=== PATIENT | male | born 1955 | race Caucasian/White ===

== ENCOUNTER 2018-12-05 09:00 | Inpatient (IN) | payer BC ==
--- NOTE | 2018-11-23 10:46 | HP ---
Amended report to enter cosigning physician. HISTORY AND PHYSICAL: DATE OF ADMISSION/SURGERY: 12/05/18 DATE OF OFFICE VISIT: 11/22/18 SURGEON: Nathaly Valle MD* (dictated by AMISH Booker). PROCEDURE: Right total knee arthroplasty. CHIEF COMPLAINT: Right knee pain. HISTORY OF PRESENT ILLNESS: Mr. Santa is a 63-year-old gentleman with end- stage osteoarthritis of the right knee. He has failed conservative treatment and elected to proceed with the right total knee arthroplasty. PAST MEDICAL HISTORY: Hypertension, high cholesterol, history of prostate cancer, coronary artery disease, prior AL, depression, anxiety, spinal stenosis and sleep apnea. PAST SURGICAL HISTORY: Prostatectomy, stent placement, lumbar fusion, left shoulder rotator cuff repair, right knee scope, umbilical hernia repair and septoplasty. CURRENT MEDICATIONS: 1. Aspirin 81 mg today. 2. Multivitamin. 3. Ibuprofen as needed. 4. Tylenol as needed. 5. Crestor 10 mg a day. 6. Zetia 10 mg today. 7. Cymbalta. 8. Simvastatin 10 mg every other day. 9. Tramadol as needed. ALLERGIES: ALEVE. FAMILY HISTORY: Diabetes and coronary artery disease. SOCIAL HISTORY: He is a 63-year-old gentleman who lives with his . He does not smoke, use drugs or alcohol. REVIEW OF SYSTEMS: A complete 14-point review of systems was reviewed with the patient, it was all negative or noncontributory. He denies any history of DVT , PE, hepatitis, HIV or anesthesia problems. PHYSICAL EXAMINATION GENERAL: He is well developed, well nourished, in no acute distress. VITAL SIGNS: He stands 5 feet 9 inches tall, weighs 225 pounds, blood pressure is 104/64, his heart rate is 64. HEENT: Normocephalic, atraumatic. NECK: Supple. No palpable lymph nodes. PULMONARY: Lungs are clear to auscultation bilaterally. CARDIO: Regular rate and rhythm. Strong S1 and S2. ABDOMEN: Soft, nontender, nondistended. NEUROLOGICAL: He is alert and oriented x3. MUSCULOSKELETAL: Right lower extremity: Skin is intact. There are no open wounds or abrasions. There is a moderate effusion of the right knee joint, some tenderness over the medial and lateral joint line. Range of motion is 5 to 90 degrees of flexion with severe pain and patellofemoral crepitus. He has 5 /5 lower extremity strength. He does have diminished sensation over the dorsal right foot and great toe and he has a 2+ dorsalis pedis pulse. ASSESSMENT AND PLAN: Mr. Santa is a 63-year-old gentleman with endstage osteoarthritis of the right knee. He has failed conservative treatment and elected to proceed with the right total knee arthroplasty. The surgery is scheduled for 12/05/[address] Valle discussed the risks and benefits of the surgery at today's visit and all of his questions were answered. He will follow up with Dr. Valle in 2 weeks after the surgery. AMISH BOOKER [id number]/CPS #: [id number] MTDD
[~2018-12-05 09:00] MED LIST: Acetaminophen IV 1GM/100ML * 1,000 MG/100 ML VIAL IVPB ONE; Dexamethasone IV* 4 MG/ML 1 ML (4 MG) IV SLOW PU ONE; Famotidine IV* 10 MG/ML 2 ML (20 mg) IV ONE; Gabapentin CAP(*) 300 MG PO ONE; Lactated Ringers 1000 ML Bag* 1,000 ML IV SCH; Tranexamic Acid 1,000 MG in NS 0.9% 50 ML* (outpatient use) IV SCH; celeCOXIB CAP* 200 MG PO ONE
--- OUTSIDE RECORDS SUMMARY | 2018-12-05 10:04 | XMS REPORT | Continuity of Care Document ---
:1955 External Reference #:[id number] Author Name Marizol Vicente Care Team Providers Name Role Phone Brock Jacobs MD Primary Care Physician Unavailable Payers Date Identification Numbers Payment Provider Subscriber Policy Number: [id number] [employer] [place] PayID: [id number] [address] [address] [place] [address] Advance Directives Description No Information Available Problems Active Problems Provider Date Coronary arteriosclerosis Zari Jolley M.D. Onset: 04/16/2013 Disturbance in sleep behavior Zari Jolley M.D. Onset: 04/16/2013 Cramp in lower leg associated with Zari Jolley M.D. Onset: 04/16/2013 rest Hyperlipidemia Zari Jolley M.D. Onset: 04/16/2013 Obstructive sleep apnea syndrome Zari Jolley M.D. Onset: 08/13/2014 Hypersomnia with sleep apnea Johanna Antonio DNP, RN, Onset: 04/01/2015 [facility] Spinal stenosis of lumbar region Simon Mclean M.D. Onset: 03/29/2016 Localized, primary osteoarthritis Nathaly Valle M.D. Onset: 10/16/2018 Mixed hyperlipidemia Zari Jolley M.D. 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 [employer] Tobacco Use Start: Unknown Never Smoked Cigarettes Smoking Status Reviewed: 11/13/18 Never Smoked Cigarettes ETOH Use Denies alcohol use Tobacco Use Start: Unknown Patient has never smoked Recreational Drug Use Denies Drug Use Exercise Type/Frequency Exercises sporadically Allergies, Adverse Reactions, Alerts Active Allergies Reaction Severity Comments Date Aleve Joint swelling per patient 12/02/2016 Inactive Allergies NKDA 04/25/2012 Medications Active Medications SIG Qnty Indications Ordering Date Provider Zetia 1 by mouth every 90tabs E78.2 Zari Jolley, 08/21/2018 10mg Tablets day M.D. Crestor 1 by mouth every 30tabs E78.00 Amna AntunezEneida Angeles, 03/07/2018 10mg Tablets other day N.P. Aspirin Low Dose 1 po qd Unknown 81mg Chewtabs Multiple Vitamin 1 po qd 100tabs Unknown Tablets Ibuprofen as needed Unknown 200mg Acetaminophen as needed Unknown 500mg Cpap used at night Unknown Cymbalta 1 tab in Am and Unknown 30mg Caps DR 1 tab in PM Part Tramadol HCL 1-2 tablets by Unknown 50mg Tablets mouth at night History Medications Aspirin Ec take 1 tab bid 30tabs Yash Reyna 12/28/2017 - 325mg Tablets DR by mouth every MD Rainer 06/26/2018 day x 14 days. with food. Oxycodone-Acetaminophen 1-2 by mouth 30tabs Yash Reyna 12/28/2017 - every 4-6 hours MD Rainer 03/06/2018 5-325mg Tablets as needed for pain. Naproxen 1 tablet with 30tabs M75.42 Yash Reyna 04/05/2016 - 500mg Tablets food by mouth MD Rainer 03/27/2017 twice a day ( PT does not take) Gabapentin 1 by mouth three 90caps M48.06 Simon Mclean, 03/29/2016 - 300mg Capsules times a day M.DEneida 03/27/2017 Crestor 1 tab q day. _On 90tabs Brock Jacobs, - 40mg Tablets Bronwyn RODRÍGUEZ 03/07/2018 Cymbalta 1 po qd Unknown - 60mg 12/01/2016 Back Injection 1 injection Unknown - lower lumbar 12/12/2017 spine L4 and L5 Mar 2017 Mobic once daily Unknown - 12/12/2017 Gabapentin 1 in am 1in pm Unknown - 300mg Capsules 11/12/2018 Cyclobenzaprine HCL 1 tablet po at [facility], - 10mg bedtime ALLAN BrandtJanisKALEB 11/12/2018 Tablets Cyclobenzaprine HCL 1 by mouth three Unknown - 5mg times a day 11/12/2018 Tablets Medications Administered in Office Medication SIG Qnty Indications Ordering Provider Date Depomedrol 40MG Yash Spear MD 06/27/2018 Injection Depomedrol 40MG Juan Ramon Bennett M.D. 12/19/2017 Injection Depomedrol 40MG Yash Spear MD 04/05/2016 Injection Depomedrol 40MG Juan Ramon Bennett M.D. 03/31/2016 Injection Depomedrol 40MG Juan Ramon Bennett M.D. 03/31/2016 Injection Celestone 3 mg and 3mg Cesia Lennon MD 06/30/2015 Injection Depomedrol 80MG Juan Ramon Bennett M.D. 02/24/2015 Injection Depomedrol 80MG Kelly Valderrama RPA-C 05/08/2014 Injection Depomedrol 80MG Juan Ramon Bennett M.D. 03/06/2014 Injection Depomedrol 80MG Tracee Moore RPA-C 02/06/2014 Injection Depomedrol 80MG Ag Evans M.D. 11/08/2013 Injection Depomedrol 80MG Juan Ramon Bennett M.D. 09/05/2013 Injection José Miguelrol 40MG Juan Ramon Bennett M.D. 09/05/2013 Injection Immunizations Description No Information Available Vital Signs Date Vital Result Comment 11/13/2018 2:08pm Height 69 inches 5'9" Weight 219.25 lb w/shoes Heart Rate 58 /min BP Systolic Sitting 118 mmHg Lue reg cuff BP Diastolic Sitting 66 mmHg Lue reg cuff Respiratory Rate 16 /min BMI (Body Mass Index) 32.4 kg/m2 Ejection Fraction 55% 07/23/17 11/02/2018 11:25am Height 69 inches 5'9" Heart Rate 59 /min BP Systolic 112 mmHg BP Diastolic 68 mmHg Respiratory Rate 18 /min Body Temperature 98.1 F Pain Level 2 10/16/2018 10:50am Height 69 inches 5'9" Weight 224.00 lb Heart Rate 64 /min BP Systolic 130 mmHg BP Diastolic 74 mmHg Respiratory Rate 20 /min Pain Level 5 BMI (Body Mass Index) 33.1 kg/m2 08/28/2018 12:52pm Height 69 inches 5'9" Weight 214.00 lb BP Systolic 122 mmHg BP Diastolic 68 mmHg Respiratory Rate 16 /min Body Temperature 96.7 F Pain Level 4 BMI (Body Mass Index) 31.6 kg/m2 08/21/2018 4:03pm Height 69 inches 5'9" Weight 214.00 lb without shoes Heart Rate 50 /min BP Systolic Sitting 120 mmHg Rue reg cuff BP Diastolic Sitting 70 mmHg Rue reg cuff BP Systolic Standing 128 mmHg Rue reg cuff BP Diastolic Standing 72 mmHg Rue reg cuff Respiratory Rate 16 /min BMI (Body Mass Index) 31.6 kg/m2 Ejection Fraction 55% date 07/23/07 ECHO 06/27/2018 1:02pm Height 69 inches 5'9" Weight 215.00 lb BP Systolic 124 mmHg BP Diastolic 60 mmHg Respiratory Rate 16 /min Pain Level 2 BMI (Body Mass Index) 31.7 kg/m2 05/17/2018 11:11am Height 69 inches 5'9" Weight 209.38 lb Heart Rate 54 /min BP Systolic Sitting 124 mmHg Rue large cuff BP Diastolic Sitting 78 mmHg Rue large cuff Respiratory Rate 16 /min O2 % BldC Oximetry 97 % On Ra BMI (Body Mass Index) 30.9 kg/m2 03/30/2018 1:09pm Height 69 inches 5'9" Weight 210.00 lb Heart Rate 60 /min BP Systolic Sitting 124 mmHg BP Diastolic Sitting 76 mmHg Respiratory Rate 16 /min Pain Level 3 BMI (Body Mass Index) 31.0 kg/m2 03/07/2018 2:02pm Height 69 inches 5'9" Weight 209.00 lb Heart Rate 70 /min BP Systolic Sitting 90 mmHg lue lg cuff BP Diastolic Sitting 50 mmHg lue lg cuff BP Systolic Standing 100 mmHg BP Diastolic Standing 50 mmHg Respiratory Rate 16 /min BMI (Body Mass Index) 30.9 kg/m2 02/16/2018 2:21pm Height 69 inches 5'9" Respiratory Rate 18 /min Pain Level 1 01/09/2018 3:50pm Height 69 inches 5'9" Heart Rate 83 /min BP Systolic 102 mmHg BP Diastolic 60 mmHg Respiratory Rate 16 /min Body Temperature 98.2 F Pain Level 2 12/20/2017 8:08am Height 69 inches 5'9" Weight 210.00 lb w/ shoes Heart Rate 52 /min reg BP Systolic Sitting 114 mmHg Rue lg cuff BP Diastolic Sitting 64 mmHg Rue lg cuff BP Systolic Standing 116 mmHg Rue BP Diastolic Standing 64 mmHg Rue Respiratory Rate 16 /min BMI (Body Mass Index) 31.0 kg/m2 Ejection Fraction 55% as of 2007 echo 12/19/2017 1:17pm Height 69 inches 5'9" Weight 207.00 lb BP Systolic 118 mmHg BP Diastolic 60 mmHg Respiratory Rate 18 /min Body Temperature 97.8 F Pain Level 8 BMI (Body Mass Index) 30.6 kg/m2 12/12/2017 1:11pm Height 69 inches 5'9" Weight 207.00 lb Heart Rate 72 /min BP Systolic Sitting 124 mmHg BP Diastolic Sitting 70 mmHg Respiratory Rate 16 /min Body Temperature 98.0 F Pain Level 7 BMI (Body Mass Index) 30.6 kg/m2 11/29/2017 10:59am Height 69 inches 5'9" Weight 207.00 lb Heart Rate 60 /min BP Systolic Sitting 118 mmHg BP Diastolic Sitting 62 mmHg Respiratory Rate 16 /min Body Temperature 98.3 F Pain Level 3 BMI (Body Mass Index) 30.6 kg/m2 05/27/2017 3:10pm Height 69 inches 5'9" Weight 204.00 lb w/ shoes Heart Rate 50 /min reg BP Systolic Sitting 106 mmHg Lue, reg cuff BP Diastolic Sitting 70 mmHg Lue, reg cuff BP Systolic Standing 104 mmHg Lue BP Diastolic Standing 70 mmHg Lue Respiratory Rate 16 /min BMI (Body Mass Index) 30.1 kg/m2 Ejection Fraction 52% as of 2011 nuclear stress test 03/08/2017 2:59pm Height 69 inches 5'9" Weight 200.00 lb Heart Rate 82 /min BP Systolic Sitting 130 mmHg BP Diastolic Sitting 76 mmHg Respiratory Rate 14 /min Body Temperature 97.1 F Pain Level 5 BMI (Body Mass Index) 29.5 kg/m2 02/21/2017 3:13pm Height 69 inches 5'9" Weight 200.00 lb Heart Rate 58 /min BP Systolic Sitting 108 mmHg BP Diastolic Sitting 64 mmHg Respiratory Rate 15 /min Body Temperature 97.1 F Pain Level 3 BMI (Body Mass Index) 29.5 kg/m2 01/25/2017 2:41pm Height 71 inches 5'11" Weight 198.00 lb Heart Rate 68 /min BP Systolic Sitting 120 mmHg BP Diastolic Sitting 74 mmHg Respiratory Rate 14 /min O2 % BldC Oximetry 97 % BMI (Body Mass Index) 27.6 kg/m2 12/02/2016 4:10pm Height 71 inches 5'11" Weight 215.00 lb with shoes Heart Rate 46 /min BP Systolic Sitting 110 mmHg Lue lg cuff BP Diastolic Sitting 54 mmHg Lue lg cuff BP Systolic Standing 118 mmHg Lue lg cuff BP Diastolic Standing 60 mmHg Lue lg cuff Respiratory Rate 15 /min BMI (Body Mass Index) 30.0 kg/m2 Ejection Fraction 55% date 07/23/2007 ECHO 06/18/2016 10:46am Height 69 inches 5'9" Weight 200.00 lb Heart Rate 68 /min BP Systolic Sitting 118 mmHg BP Diastolic Sitting 70 mmHg Pain Level 4 BMI (Body Mass Index) 29.5 kg/m2 04/26/2016 2:50pm Height 69 inches 5'9" Weight 200.00 lb Heart Rate 62 /min BP Systolic Sitting 100 mmHg BP Diastolic Sitting 78 mmHg Pain Level 2 BMI (Body Mass Index) 29.5 kg/m2 04/05/2016 2:57pm Height 69 inches 5'9" Weight 200.00 lb Pain Level 1 BMI (Body Mass Index) 29.5 kg/m2 03/31/2016 2:17pm Height 69 inches 5'9" Weight 200.00 lb Heart Rate 60 /min BP Systolic 107 mmHg BP Diastolic 67 mmHg BMI (Body Mass Index) 29.5 kg/m2 03/29/2016 2:56pm Height 69 inches 5'9" Weight 210.00 lb Heart Rate 66 /min BP Systolic Sitting 110 mmHg BP Diastolic Sitting 70 mmHg Pain Level 3 BMI (Body Mass Index) 31.0 kg/m2 11/27/2015 3:35pm Height 67 inches 5'7" Weight 214.00 lb without shoes Heart Rate 58 /min BP Systolic Sitting 118 mmHg La lg cuff BP Diastolic Sitting 68 mmHg La lg cuff BP Systolic Standing 118 mmHg La lg cuff BP Diastolic Standing 68 mmHg La lg cuff Respiratory Rate 16 /min BMI (Body Mass Index) 33.5 kg/m2 Ejection Fraction 55% date 07/23/07 ECHO 11/14/2015 3:01pm Height 67 inches 5'7" Weight 200.00 lb Heart Rate 60 /min O2 % BldC Oximetry 97 % BMI (Body Mass Index) 31.3 kg/m2 06/30/2015 2:38pm Height 67 inches 5'7" Weight 200.00 lb Heart Rate 59 /min BP Systolic 105 mmHg BP Diastolic 69 mmHg BMI (Body Mass Index) 31.3 kg/m2 05/16/2015 2:56pm Height 67 inches 5'7" Weight 200.00 lb Heart Rate 57 /min BP Systolic Sitting 124 mmHg BP Diastolic Sitting 60 mmHg Respiratory Rate 14 /min O2 % BldC Oximetry 97 % BMI (Body Mass Index) 31.3 kg/m2 04/01/2015 2:30pm Height 69 inches 5'9" Weight 211.50 lb with shoes on Heart Rate 56 /min BP Systolic Sitting 130 mmHg BP Diastolic Sitting 68 mmHg Respiratory Rate 18 /min O2 % BldC Oximetry 98 % BMI (Body Mass Index) 31.2 kg/m2 Neck Circumference in inches 16 02/24/2015 2:43pm Height 72 inches 6'0" Weight 215.00 lb Pain Level 8 BMI (Body Mass Index) 29.2 kg/m2 12/30/2014 8:39am Height 72 inches 6'0" Weight 215.00 lb BMI (Body Mass Index) 29.2 kg/m2 08/13/2014 2:58pm Height 72 inches 6'0" Weight 219.00 lb Heart Rate 60 /min BP Systolic Sitting 108 mmHg Ra reg cuff BP Diastolic Sitting 74 mmHg Ra reg cuff BP Systolic Standing 114 mmHg Ra BP Diastolic Standing 80 mmHg Ra Respiratory Rate 14 /min BMI (Body Mass Index) 29.7 kg/m2 05/08/2014 9:09am Height 72 inches 6'0" Weight 195.00 lb Heart Rate 69 /min BMI (Body Mass Index) 26.4 kg/m2 03/06/2014 2:18pm Height 72 inches 6'0" Weight 210.00 lb Heart Rate 58 /min BMI (Body Mass Index) 28.5 kg/m2 02/06/2014 3:00pm Height 72 inches 6'0" Weight 210.00 lb Heart Rate 63 /min BP Systolic 125 mmHg BP Diastolic 68 mmHg BMI (Body Mass Index) 28.5 kg/m2 11/08/2013 3:02pm Height 72 inches 6'0" Weight 205.00 lb Heart Rate 69 /min BP Systolic 101 mmHg BP Diastolic 64 mmHg BMI (Body Mass Index) 27.8 kg/m2 10/16/2013 1:35pm Height 72 inches 6'0" Weight 215.00 lb Heart Rate 60 /min BP Systolic 108 mmHg BP Diastolic 65 mmHg BMI (Body Mass Index) 29.2 kg/m2 09/05/2013 8:21am Height 71 inches 5'11" Weight 200.00 lb Heart Rate 63 /min BP Systolic 120 mmHg BP Diastolic 75 mmHg BMI (Body Mass Index) 27.9 kg/m2 04/16/2013 3:09pm Height 70 inches 5'10" Weight 205.00 lb Heart Rate 68 /min BP Systolic Sitting 96 mmHg Ra reg cuff BP Diastolic Sitting 74 mmHg Ra reg cuff BP Systolic Standing 104 mmHg Ra BP Diastolic Standing 72 mmHg Ra Respiratory Rate 16 /min BMI (Body Mass Index) 29.4 kg/m2 Results Test Date Facility Test Result H/L Range Note Arthritis Panel 12/30/2014 [facility] Uric Acid 5.0 mg/dL N 4.4-7.[address] [place] [address] [phone] Erythrocyte Sed Rate 7 mm/Hr N 0-20 Loli (Anti-Nuclear AB) Screen Negative N Negative Rheumatoid Factor <15 IU/mL N <15 1 1 Test Performed by: [place] [address] Animal Breeder: Donnell Wilson II, M.D., Ph.D. Procedures Date Code Description Status 11/13/2018 78872 EKG Tracing & Interpretation Completed 08/21/2018 14060 EKG Tracing & Interpretation Completed 06/27/2018 26236 Inject/Drain Joint/Bursa Major W/O US Completed 12/28/2017 82621 Arthroscopy Shoulder,W/Rotator Cuff Repair Completed 12/28/2017 11754 Arthroscopy Shoulder,W/Rotator Cuff Repair Completed 12/28/2017 45959 Arthroscopy,Shoulder Decompression Of Subacromial Space Completed W/Acromio 12/28/2017 85820 Arthroscopy,Shoulder Decompression Of Subacromial Space Completed W/Acromio 12/28/2017 33071 Arthroscopy,Shoulder,Distal Claviculectomy Incl Dist Completed Articular SR 12/28/2017 13055 Arthroscopy,Shoulder,Distal Claviculectomy Incl Dist Completed Articular SR 12/20/2017 86125 EKG Tracing & Interpretation Completed 12/19/2017 96523 Injection Single Tendon Origin/Insertion Completed 05/31/2017 18423 Stress Test Completed 05/31/2017 19020 Stress Test Completed 05/31/2017 31725 Stress Test Completed 05/27/2017 36884 EKG Tracing & Interpretation Completed 12/02/2016 94678 EKG Tracing & Interpretation Completed 04/05/2016 04007 Inject/Drain Joint/Bursa Major W/O US Completed 03/31/2016 78933 Inject/Drain Joint/Bursa Major W/O US Completed 11/27/2015 11560 EKG Tracing & Interpretation Completed 06/30/2015 86908 Inject/Drain Joint/Bursa Small W/O US Completed 02/24/2015 02307 Inject/Drain Joint/Bursa Major W/O US Completed 08/13/2014 02162 EKG Tracing & Interpretation Completed 05/08/2014 46323 Inject/Drain Joint/Bursa Major W/O US Completed 03/06/2014 19396 Inject/Drain Joint/Bursa Major W/O US Completed 02/06/2014 40172 Rad Exam; Knee, Ap&L Completed 02/06/2014 83385 Rad Exam; Knee, Ap&L Completed 02/06/201448765 Inject/Drain Joint/Bursa Major W/O US Completed 11/08/2013 99473 Inject Tendon Sheath Or Ligament Aponeurosis Eg Plantar Completed Fascia 11/08/2013 47168 Injection Single Tendon Origin/Insertion Completed 09/05/2013 72657 Xray Knee 3 Views Completed 09/05/2013 30325 Xray Knee 3 Views Completed 09/05/201311538 Inject/Drain Joint/Bursa Major W/O US Completed 09/05/2013 41170 Inject Tendon Sheath Or Ligament Aponeurosis Eg Plantar Completed Fascia 07/17/2013 52831 Polysomnography Sleep Staging 4+ Parameters W/Cpap Completed 06/26/2013 28050 Polysomnography Sleep Staging 4+ Parameters Completed 04/16/2013 58420 EKG Tracing & Interpretation Completed Encounters Type Date Location Provider Dx Diagnosis Office Visit 11/13/2018 [facility] Amna Angeles, E78.2 Mixed hyperlipidemia 2:30p Of [employer] I25.10 Athscl heart disease of [place] coronary artery w/o ang pctrs Z01.810 Encounter for preprocedural cardiovascular examination Z68.30 Body mass index (BMI) 30.0-30.9, adult Office Visit 10/16/2018 10:30a Orthopedic Services Nathaly Valle, M25.561 Pain in right Of C.M.A. M.D. knee M25.461 Effusion, right knee M17.11 Unilateral primary osteoarthritis, right knee Office Visit 08/28/2018 1:00p Orthopedic Yash F S46.012A Strain of Services Of MD Rainer musc/tend the C.M.A. rotator cuff of left shoulder, init M75.52 Bursitis of left shoulder M19.012 Primary osteoarthritis, left shoulder M25.561 Pain in right knee M17.11 Unilateral primary osteoarthritis, right knee Office Visit 08/21/2018 Chandana Jolley, E78.2 Mixed hyperlipidemia 4:00p Cardiology Of [place] [facility] I25.10 Athscl heart disease of [place] coronary artery w/o ang pctrs M19.90 Unspecified osteoarthritis, unspecified site Office Visit 06/27/2018 1:00p Orthopedic Yash F M75.22 Bicipital Services Of MD Rainer tendinitis, left C.M.A. shoulder M75.112 Incomplete rotatr-cuff tear/ruptr of l shoulder, not trauma M75.42 Impingement syndrome of left shoulder M25.561 Pain in right knee M17.11 Unilateral primary osteoarthritis, right knee M54.5 Low back pain Z47.89 Encounter for other orthopedic aftercare Office Visit 05/17/2018 Pulmonology And Johanna G47.33 Obstructive sleep 11:00a Sleep Services Of CHANO Antonio, RN, apnea (adult) [facility] [employer] (pediatric) G47.14 Hypersomnia due to medical condition Z68.30 Body mass index (BMI) 30.0-30.9, adult Office Visit 03/30/2018 1:00p Orthopedic Yash F M75.02 Adhesive Services Of MD Rainer capsulitis of C.M.A. left shoulder M19.012 Primary osteoarthritis, left shoulder S46.112D Strain of musc/fasc/tend long head of biceps, left arm, subs Office Visit 03/07/2018 2:00p [facility] Amna S. I25.10 Athscl heart Of [facility] Karthik, N.P. disease of [place] coronary artery w/o ang pctrs E78.00 Pure hypercholesterolemia, unspecified Office Visit 12/20/2017 8:30a [facility] Amna S. I25.10 Athscl heart Of [facility] Karthik, N.P. disease of [place] coronary artery w/o ang pctrs Z01.810 Encounter for preprocedural cardiovascular examination E78.5 Hyperlipidemia, unspecified S46.012D Strain of musc/tend the rotator cuff of left shoulder, subs Office Visit 12/19/2017 2:15p Orthopedic Juan Ramon Bennett, M70.62 Trochanteric Services Of [place] bursitis, left hip C.M.A. Office Visit 12/12/2017 1:15p Orthopedic Yash Reyna M75.42 Impingement Services Of MD Rainer syndrome of left C.M.A. shoulder S46.012D Strain of musc/tend the rotator cuff of left shoulder, subs S46.112D Strain of musc/fasc/tend long head of biceps, left arm, subs M75.32 Calcific tendinitis of left shoulder M75.22 Bicipital tendinitis, left shoulder Office Visit 11/29/2017 11:15a Orthopedic Yash Reyna M75.42 Impingement Services Of MD Rainer syndrome of left C.M.A. shoulder S46.012D Strain of musc/tend the rotator cuff of left shoulder, subs S46.112D Strain of musc/fasc/tend long head of biceps, left arm, subs M75.32 Calcific tendinitis of left shoulder M75.22 Bicipital tendinitis, left shoulder Office Visit 05/27/2017 [facility] Zari Jolley, Z01.810 Encounter for 3:15p Cardiology Of [place] preprocedural [facility] cardiovascular examination I25.10 Athscl heart disease of [place] coronary artery w/o ang pctrs E78.5 Hyperlipidemia, unspecified M48.061 Spinal stenosis, lumbar region without neurogenic nora Office Visit 03/08/2017 3:00p Orthopedic Yash Reyna M75.42 Impingement Services Of MD Rainer syndrome of left C.M.A. shoulder S46.012D Strain of musc/tend the rotator cuff of left shoulder, subs S46.112D Strain of musc/fasc/tend long head of biceps, left arm, subs Office Visit 02/21/2017 3:15p Orthopedic Yash Reyna M25.512 Pain in left Services Of MD Rainer shoulder Walter M75.42 Impingement syndrome of left shoulder Office Visit 01/25/2017 Pulmonology And Johanna G47.33 Obstructive sleep 2:30p Sleep Services Of CHANO Antonio RN, apnea (adult) [facility]- (pediatric) Z72.821 Inadequate sleep hygiene G47.10 Hypersomnia, unspecified M54.30 Sciatica, unspecified side Z79.899 Other fpc (current) drug therapy Office Visit 12/02/2016 4:00p [facility] Zari Jolley I25.10 Athscl heart Of Breonna Mark disease of [place] coronary artery w/o ang pctrs E78.5 Hyperlipidemia, unspecified Office Visit 06/18/2016 Neurosurgery Simon Mclean M48.06 Spinal stenosis , 11:15a Services Of Breonna Mark lumbar region Office Visit 04/26/2016 Neurosurgery Simon Mclean M48.06 Spinal stenosis , 3:00p Services Of [place] Mark lumbar region Office Visit 04/05/2016 Orthopedic Yash Reyna M75.42 Impingement 3:00p Services Of Walter Spear MD syndrome of left shoulder M75.32 Calcific tendinitis of left shoulder Office Visit 03/31/2016 Orthopedic Juan Ramon Bennett, M17.0 Bilateral primary 2:00p Services Of Walter Mark osteoarthritis of knee Office Visit 03/29/2016 Neurosurgery Simon M48.06 Spinal stenosis, 3:00p Services Of Breonna Mclean lumbar region M.DEneida Office Visit 11/27/2015 [facility] Zari I25.10 Athscl heart disease 3:30p Of [facility] Samreen of [place] coronary M.D. artery w/o ang pctrs G47.33 Obstructive sleep apnea (adult) (pediatric) E78.5 Hyperlipidemia, unspecified Office Visit 11/14/2015 Pulmonology And Johanna G47.33 Obstructive sleep 3:00p Sleep Services Of CHANO Antonio RN, apnea (adult) [employer]SEM[employer] MACHINE [employer]ATOR[employer] (pediatric) G47.10 Hypersomnia, unspecified Office Visit 06/30/2015 Orthopedic Cesia Lennon, M18.12 Unil primary 2:30p Services Of MD sanchez of [facility] C.M.A. carpometacarp joint, l hand Office Visit 05/16/2015 Pulmonology And Johanna G47.33 Obstructive sleep 3:00p Sleep Services Of CHANO Antonio RN, apnea (adult) [facility]- (pediatric) G47.10 Hypersomnia, unspecified Office Visit 04/01/2015 Pulmonology And Johanna G47.33 Obstructive sleep 2:30p Sleep Services Of CHANO Antonio RN, apnea (adult) [facility]- (pediatric) G47.10 Hypersomnia, unspecified Office Visit 02/24/2015 2:30p Orthopedic Juan Ramon Bennett, 715.96 Osteoarthrosis Services Of [place] Unspec Genlzd Or C.M.A. Localized Lower Leg 727.09 Synovitis & Tenosynovitis Other 715.14 Osteoarthrosis Localized Prim Hand 726.31 Epicondylitis Medial Office Visit 12/30/2014 9:00a Orthopedic Kelly 727.09 Synovitis & Services Of ALKA Valderrama Tenosynovitis Other C.M.A. 715.14 Osteoarthrosis Localized Prim Hand Office Visit 08/13/2014 2:45p [facility] Zari Jolley, 327.23 Obstructive Sleep Of Breonna Mark Apnea Adult & Pediatric 414.01 Coronary Atherosclerosis Lime 272.4 Hyperlipidemia Other Unspec 278.00 Obesity Unspec Office Visit 05/08/2014 Orthopedic Kelly 715.96 Osteoarthrosis 8:15a Services Of ALKA Valderrama Unspec Genlzd Or C.M.A. Localized Lower Leg Office Visit 03/06/2014 Orthopedic Juan Ramon Bennett, 836.0 Dislocation Knee 2:00p Services Of [place] Tear Of Medial C.M.A. Cartilage Or Meniscus Curren 726.10 Bursae & Tendon Disorders Shoulder Region Unspec 715.96 Osteoarthrosis Unspec Genlzd Or Localized Lower Leg Office Visit 02/06/2014 Orthopedic Tracee 715.96 Osteoarthrosis 2:30p Services Of ALKA Moore Unspec Genlzd Or C.M.A. 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 Office Visit 10/16/2013 Orthopedic Ag 728.71 Fibromatosis Plantar 1:30p Services Of [place] Evans Fascia C.M.A. Office Visit 09/05/2013 Orthopedic Juan Ramon Bennett, 716.96 Arthropathy Unspec 8:00a Services Of [place] Lower Leg C.M.AEneida 844.9 Sprains & Strains Knee & Leg Unspec 727.03 Trigger Finger Acquired Office Visit 05/31/2013 1:08p Sleep Disorder Nimesh SK. 780.59 Sleep Disturbances Center [place] Alvarez Other 780.79 Malaise And Fatigue Other 786.09 Dyspnea & Respiratory Abnormalities Other Office Visit 04/16/2013 [facility] Zari Jolley, 414.01 Coronary 3:00p Cardiology Of [place] Atherosclerosis [facility] Lime 780.50 Sleep Disturbance Unspec 327.52 Sleep Related Leg Cramps 272.4 Hyperlipidemia Other Unspec Office Visit 11/20/2012 2:30p Orthopedic Juan Ramon Bennett, 354.0 Carpal Tunnel Services Of Deedee Syndrome C.M.A. Office Visit 10/20/2012 1:45p Orthopedic Juan Ramon Bennett 716.96 Arthropathy Unspec Services Of Deed[place] Lower Leg C.M.AEneida 726.10 Bursae & Tendon Disorders Shoulder Region Unspec Office Visit 04/25/2012 [facility] Zari Jolley, 414.01 Coronary 3:00p Of Breonna Mark Atherosclerosis [place] Office Visit 02/10/2010 Orthopedic Jae 715.96 Osteoarthrosis 2:45p Services Of Deedee Smalls Unspec Genlzd Or C.M.A. Localized Lower Leg Office Visit 07/24/2009 Neurosurgery Qasim Dodson 846.0 Sprains & Strains 2:15p Services Of Breonna Martines M.D. Sacroiliac Region Lumbosacral (Joint)(Liga 724.02 Spinal Stenosis, Lumbar Region, W/O Neurogenic Claudication Plan of Treatment Future Appointment(s):02/27/2019 10:00 am - Amna Angeles N.PEneida at [facility]11/24/2018 11:00 am - José Abraham M.D. at [facility]03/05/2019 1:00 pm - Yash Spear MD at [facility] Of .M.A.12/05/2018 9:30 am - Wm Ortega PA-C at [facility] Of ..A.12/05/2018 9:30 am - AMISH Mendiola at [facility] ..A.12/05/2018 9:30 am - Nathaly Valle M.D. at [facility].11/22/2018 9:00 am - Nathaly Valle M.D. at [facility].05/18/2019 11:15 am - Johanna Antonio DNP, RN, ASSEMBLY MACHINE OPERATOR- at [facility]11/13/2018 - Amna Angeles, N.P.E78.2 Mixed hdodweqtbhwiynC63.10 Atherosclerotic heart disease of [place] coronary artery withNew Orders:Stress Test, Pharmacologic Nuclear (Lexiscan), Ordered: Follow up:please reprint lipid order from 08/2018 ov 8-03/2019 LBS or NPZ01.810 Encounter for preprocedural cardiovascular ylnggaqfppoH62.30 Body mass index (BMI) 30.0-30.9, adult
--- OUTSIDE RECORDS SUMMARY | 2018-12-05 10:04 | XMS REPORT | Continuity of Care Document ---
:1955 External Reference #:[id number] Author Name Anton Kami Care Team Providers Name Role Phone Brock Jacobs MD Primary Care Physician Unavailable Payers Date Identification Numbers Payment Provider Subscriber Policy Number: [id number] [employer] [place] PayID: [id number] [address] [address] [place] [address] Problems Active Problems Provider Date Coronary arteriosclerosis Zari Jolley M.D. Onset: 04/16/2013 Disturbance in sleep behavior Zari Jolley M.D. Onset: 04/16/2013 Cramp in lower leg associated with Zari Jolley M.D. Onset: 04/16/2013 rest Hyperlipidemia Zari Jolley M.D. Onset: 04/16/2013 Obstructive sleep apnea syndrome Zari Jolley M.D. 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 03/27/2017 Crestor 1 tab q day. _On 90tabs Brock Jacobs, - 40mg Tablets Bronwyn RODRÍGUEZ 03/07/2018 Cymbalta 1 po qd Unknown - 60mg 12/01/2016 Back Injection 1 injection Unknown - lower lumbar 12/12/2017 spine L4 and L5 Mar 2017 Mobic once daily Unknown - 12/12/2017 Gabapentin 1 in am 1in pm Unknown - 300mg Capsules 11/12/2018 Cyclobenzaprine HCL 1 tablet po at [place], - 10mg bedtime ALLAN Brandt-BC 11/12/2018 Tablets Cyclobenzaprine HCL 1 by mouth three Unknown - 5mg times a day 11/12/2018 Tablets Medications Administered in Office Medication SIG Qnty Indications Ordering Provider Date Depomedrol 40MG Yash Spaer MD 06/27/2018 Injection Depomedrol 40MG Juan Ramon [...] 80MG Juan Ramon Bennett M.D. 09/05/2013 Injection Suyapaomedrol 40MG Juan Ramon Bennett M.D. 09/05/2013 Injection Vital Signs Date Vital Result Comment 11/22/2018 9:11am Height 69 inches 5'9" Weight 225.00 lb Heart Rate 64 /min BP Systolic 104 mmHg BP Diastolic 64 mmHg BMI (Body Mass Index) 33.2 kg/m2 11/13/2018 2:08pm Height 69 inches 5'9" Weight [...] Result H/L Range Note Arthritis Panel 12/30/2014 [facility] Uric Acid 5.0 mg/dL N 4.4-7.[address] [place] [address] [phone] Erythrocyte Sed Rate 7 mm/Hr N 0-20 Loli (Anti-Nuclear AB) Screen Negative N Negative Rheumatoid Factor <15 IU/mL N <15 1 1 Test Performed by: [facility] [place] [address] Traveling Phlebotomist: Donnell Wilson II, M.D., Ph.D. Procedures Date Code Description Status 11/13/2018 40074 EKG Tracing & Interpretation Completed 08/21/2018 85141 EKG Tracing & Interpretation Completed 06/27/201834967 Inject/Drain Joint/Bursa Major W/O US Completed 12/28/2017 00577 Arthroscopy Shoulder,W/Rotator Cuff Repair Completed 12/28/2017 78732 Arthroscopy Shoulder,W/Rotator Cuff Repair Completed 12/28/2017 95597 Arthroscopy,Shoulder Decompression Of Subacromial Space Completed /Acromio 12/28/2017 80324 Arthroscopy,Shoulder Decompression Of Subacromial Space Completed W/Acromio 12/28/2017 81847 Arthroscopy,Shoulder,Distal Claviculectomy Incl Dist Completed Articular SR 12/28/2017 18147 Arthroscopy,Shoulder,Distal Claviculectomy Incl Dist Completed Articular SR 12/20/2017 76809 EKG Tracing & Interpretation Completed 12/19/201768446 Injection Single Tendon Origin/Insertion Completed 05/31/2017 88889 Stress Test Completed 05/31/2017 14708 Stress Test Completed 05/31/2017 08588 Stress Test Completed 05/27/2017 77528 EKG Tracing & Interpretation Completed 12/02/2016 33803 EKG Tracing & Interpretation Completed 04/05/2016 21856 Inject/Drain Joint/Bursa Major W/O US Completed 03/31/2016 33399 Inject/Drain Joint/Bursa Major W/O US Completed 11/27/2015 12141 EKG Tracing & Interpretation Completed 06/30/2015 49322 Inject/Drain Joint/Bursa Small W/O US Completed 02/24/2015 53989 Inject/Drain Joint/Bursa Major W/O US Completed 08/13/2014 99334 EKG Tracing & Interpretation Completed 05/08/2014 69549 Inject/Drain Joint/Bursa Major W/O US Completed 03/06/2014 80597 Inject/Drain Joint/Bursa Major W/O US Completed 02/06/2014 28504 Rad Exam; Knee, Ap&L Completed 02/06/2014 24247 Rad Exam; Knee, Ap&L Completed 02/06/201441527 Inject/Drain Joint/Bursa Major W/O US Completed 11/08/2013 97102 Inject Tendon Sheath Or Ligament Aponeurosis Eg Plantar Completed Fascia 11/08/201387625 Injection Single Tendon Origin/Insertion Completed 09/05/2013 81169 Xray Knee 3 Views Completed 09/05/2013 14358 Xray Knee 3 Views Completed 09/05/201327755 Inject/Drain Joint/Bursa Major W/O US Completed 09/05/2013 75382 Inject Tendon Sheath Or Ligament Aponeurosis Eg Plantar Completed Fascia 07/17/2013 53421 Polysomnography Sleep Staging 4+ Parameters W/Cpap Completed 06/26/2013 39279 Polysomnography Sleep Staging 4+ Parameters Completed 04/16/2013 16376 EKG Tracing & Interpretation Completed Encounters Type Date Location Provider Dx Diagnosis Office Visit 11/13/2018 [facility] Amna Angeles, E78.2 Mixed hyperlipidemia 2:30p Of Disability Manager N.P. I25.10 Athscl heart disease of [place] coronary artery w/o ang pctrs Z01.810 Encounter for preprocedural cardiovascular examination Z68.30 Body mass index (BMI) 30.0-30.9, adult Office Visit 11/02/2018 11:15a Orthopedic Yash F S46.012A Strain of Services Of MD Rainer musc/tend the C.M.A. rotator cuff of left shoulder, init M75.52 Bursitis of left shoulder M19.012 Primary osteoarthritis, left shoulder Office Visit 10/16/2018 10:30a Orthopedic Services Nathaly [...] primary osteoarthritis, right knee Office Visit 08/21/2018 [facility] Zari Jolley, E78.2 Mixed hyperlipidemia 4:00p Cardiology Of Deedee Ravi I25.10 Athscl heart disease of [place] coronary artery w/o ang pctrs M19.90 Unspecified [...] Services Of CHANO Antonio, RN, apnea (adult) [facility] GAMING COMMISSIONER-BC (pediatric) G47.14 Hypersomnia due to medical condition Z68.30 Body mass index (BMI) 30.0-30.9, adult Office Visit 03/30/2018 1:00p Orthopedic Yash Reyna M75.02 Adhesive Services Of MD Rainer capsulitis of C.M.A. left shoulder M19.012 Primary osteoarthritis, left shoulder S46.112D Strain of musc/fasc/tend long head of biceps, left arm, subs Office Visit 03/07/2018 2:00p [facility] Amna S. I25.10 Athscl heart Of [facility] Karthik, N.P. disease of [place] coronary artery w/o ang pctrs E78.00 Pure hypercholesterolemia, unspecified Office Visit 12/20/2017 8:30a [facility] Amna S. I25.10 Athscl heart Of [facility] Karthik, N.P. disease of [place] coronary artery w/o ang pctrs Z01.810 Encounter for preprocedural cardiovascular examination E78.5 Hyperlipidemia, unspecified S46.012D Strain of musc/tend the rotator cuff of left shoulder, subs Office Visit 12/19/2017 2:15p Orthopedic Juan Ramon Bennett M70.62 Trochanteric Services Of De[place]ee bursitis, left [...] shoulder Office Visit 11/29/2017 11:15a Orthopedic Yash Carrion75.42 Impingement Services Of MD Rainer syndrome of left C.M.A. shoulder S46.012D Strain of musc/tend the rotator cuff of left shoulder, subs S46.112D Strain of musc/fasc/tend long head of biceps, left arm, subs M75.32 Calcific tendinitis of left shoulder M75.22 Bicipital tendinitis, left shoulder Office Visit 05/27/2017 [facility] Zari Jolley, Z01.810 Encounter for 3:15p Cardiology Of M.D. preprocedural [facility] cardiovascular examination I25.10 Athscl heart disease of [place] coronary artery w/o ang pctrs E78.5 Hyperlipidemia, [...] in left Services Of MD Rainer shoulder C.M.A. M75.42 Impingement syndrome of left shoulder Office Visit 01/25/2017 Pulmonology And Johanna G47.33 Obstructive sleep 2:30p Sleep Services Of CHANO Antonio, RN, apnea (adult) [facility] GAMING COMMISSIONER-BC (pediatric) Z72.821 Inadequate sleep hygiene G47.10 Hypersomnia, unspecified M54.30 Sciatica, unspecified side Z79.899 Other prison (current) drug therapy Office Visit 12/02/2016 4:00p [facility] Zari Jolley, I25.10 Athscl heart Of Disability Manager M.Suman disease of [place] coronary artery w/o ang pctrs E78.5 Hyperlipidemia, unspecified Office Visit 06/18/2016 Neurosurgery Simon Mclean M48.06 Spinal stenosis , 11:15a Services Of Breonna Mark lumbar region Office Visit 04/26/2016 Neurosurgery Simon Mclean M48.06 Spinal stenosis , 3:00p Services Of Disability Manager Deedee lumbar region Office Visit 04/05/2016 Orthopedic Yash Reyna M75.42 Impingement 3:00p Services Of Walter Spear MD syndrome of left shoulder M75.32 Calcific tendinitis of left shoulder Office Visit 03/31/2016 Orthopedic Juan Ramon Bennett, M17.0 Bilateral primary 2:00p Services Of Walter Mark osteoarthritis of knee Office Visit 03/29/2016 Neurosurgery Simon M48.06 Spinal stenosis, 3:00p Services Of Disability Manager [place], lumbar region M.D. Office Visit 11/27/2015 [facility] Zari I25.10 Athscl heart disease 3:30p Of [facility] Samreen, of [place] coronary M.D. artery w/o ang pctrs G47.33 Obstructive sleep apnea (adult) (pediatric) E78.5 Hyperlipidemia, unspecified Office Visit 11/14/2015 Pulmonology And Johanna G47.33 Obstructive sleep 3:00p Sleep Services Of CHANO Antonio, BETO, apnea (adult) [facility] GAMING COMMISSIONER-BC (pediatric) G47.10 Hypersomnia, unspecified Office Visit 06/30/2015 Orthopedic Cesia Lennon, M18.12 Unil primary 2:30p Services Of MD sanchez of [facility] C.M.A. carpometacarp joint, l hand Office Visit 05/16/2015 Pulmonology And Johanna G47.33 Obstructive sleep 3:00p Sleep Services Of CHANO Antonio RN, apnea (adult) [facility] GAMING COMMISSIONER-BC (pediatric) G47.10 Hypersomnia, unspecified Office Visit 04/01/2015 Pulmonology And Johanna G47.33 Obstructive sleep 2:30p Sleep Services Of CHANO Antonio RN, apnea (adult) [facility] GAMING COMMISSIONER-BC (pediatric) G47.10 Hypersomnia, unspecified Office Visit 02/24/2015 2:30p Orthopedic Juan Ramon Bennett, 715.96 Osteoarthrosis Services Of Deedee Unspec Genlzd Or C.M.A. Localized Lower Leg 727.09 Synovitis & Tenosynovitis Other 715.14 Osteoarthrosis Localized Prim Hand 726.31 Epicondylitis Medial Office Visit 12/30/2014 9:00a Orthopedic Kelly 727.09 Synovitis & Services Of ALKA Valderrama Tenosynovitis Other C.M.A. 715.14 Osteoarthrosis Localized Prim Hand Office Visit 08/13/2014 2:45p [facility] Zari Jolley, 327.23 Obstructive Sleep Of [facility] MEneidaDEneida Apnea Adult & Pediatric 414.01 Coronary Atherosclerosis [place] 272.4 Hyperlipidemia Other Unspec 278.00 Obesity Unspec Office Visit 05/08/2014 Orthopedic Kelly 715.96 Osteoarthrosis 8:15a Services Of [place], RPA-C Unspec Genlzd Or C.M.A. Localized Lower Leg Office Visit 03/06/2014 Orthopedic Juan Ramon Bennett, 836.0 Dislocation Knee 2:00p Services Of Deedee Tear Of Medial C.M.A. Cartilage Or Meniscus Bharti 726.10 Bursae & Tendon Disorders Shoulder Region Unspec 715.96 Osteoarthrosis Unspec Genlzd Or Localized Lower Leg Office Visit 02/06/2014 Orthopedic Tracee 715.96 Osteoarthrosis 2:30p Services Of ALKA Moore Unspec Genlzd Or C.M.A. 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 Office Visit 10/16/2013 Orthopedic Ag Bradley8.71 Fibromatosis Plantar 1:30p Services Of Deedee Evans Fascia C.M.A. Office Visit 09/05/2013 Orthopedic Juan Ramon Bennett, 716.96 Arthropathy Unspec 8:00a Services Of Deedee Lower Leg C.M.A. 844.9 Sprains & Strains Knee & Leg Unspec 727.03 Trigger Finger Acquired Office Visit 05/31/2013 1:08p Sleep Disorder Nimesh SK. 780.59 Sleep Disturbances Center Deedee Alvarez Other 780.79 Malaise And Fatigue Other 786.09 Dyspnea & Respiratory Abnormalities Other Office Visit 04/16/2013 [facility] Zari Jolley, 414.01 Coronary 3:00p Cardiology Of Murali.Suman Atherosclerosis Disability Manager [place] 780.50 Sleep Disturbance Unspec 327.52 Sleep Related Leg Cramps 272.4 Hyperlipidemia Other Unspec Office Visit 11/20/2012 2:30p Orthopedic Juan Ramon Bennett, 354.0 Carpal Tunnel Services Of [place]ee Syndrome C.M.A. Office Visit 10/20/2012 1:45p Orthopedic Juan Ramon Bennett 716.96 Arthropathy Unspec Services Of Deedee Lower Leg C.M.A. 726.10 Bursae & Tendon Disorders Shoulder Region Unspec Office Visit 04/25/2012 [facility] Zari Jolley, 414.01 Coronary 3:00p Of Breonna Mark Atherosclerosis [place] Office Visit 02/10/2010 Orthopedic Jae 715.96 Osteoarthrosis 2:45p Services Of Deedee Smalls Unspec Genlzd Or C.M.A. Localized Lower Leg Office Visit 07/24/2009 Neurosurgery Qasim CarrionEneida 846.0 Sprains & Strains 2:15p Services Of [facility] Deedee Martines Sacroiliac Region Lumbosacral (Joint)(Liga 724.02 Spinal Stenosis, Lumbar Region, W/O Neurogenic Claudication Plan of Treatment Future Appointment(s):12/15/2018 1:15 pm - Nathaly Valle M.D. at [facility] C.[facility].12/05/2018 1:30 pm - ALKA Villaseñor at [facility] Of C.M.A.02/27/2019 10:00 am - Amna Angeles NReyes at [facility]11/24/2018 11:00 am - José Abraham M.D. at [facility] Of [facility]03/05/2019 1:00 pm - Yash Spear MD at [facility] Services Of C.M.A.12/05/2018 1:30 pm - AMISH Mendiola at [facility] Of C.M.A.12/05/2018 1:30 pm - Nathaly Valle M.D. at [facility] Of C.M.A.05/18/2019 11:15 am - Johanna Antonio DNP, RN, GAMING COMMISSIONER-BC at [facility] Of [facility]11/22/2018 - Nathaly Valle M.D.M25.561 Pain in right kneeFollow up:Follow up: 2 weeks after xmluqkcA73.461 Effusion, right kneeM17.11 Unilateral primary osteoarthritis, right knee
--- OUTSIDE RECORDS SUMMARY | 2018-12-05 10:05 | XMS REPORT | Continuity of Care Document ---
:1955 External Reference #:[id number] Author Name Brock Jacobs M.D. Address [address] [place] [address] Care Team Providers Name Role Phone Brock Jacobs MD Care Team Information [employer] Unavailable Brock Jacobs MD Primary Care Physician Unavailable Payers Date Identification Numbers Payment Provider Subscriber Effective: Policy Number: [id number] Essential Plan [employer] 2017 Group Name: [facility] [address] [address] PayID: [id number] MADI Torres [id number] Advance Directives Description No Information Available Problems Active Problems Provider Date Coronary arteriosclerosis Brock Jacobs M.D. Onset: 04/11/2011 Knee pain Brock Jacobs M.D. Onset: 11/10/2018 Screening for malignant neoplasm of colon Brock Jacobs M.D. Onset: 12/20 History of malignant neoplasm of prostate Brock Jacobs M.D. Onset: 12/20 Degenerative joint disease involving Brock Jacobs M.D. Onset: 12/20/2017 multiple joints Shoulder joint pain Brock Jacobs M.D. Onset: 12/20/2017 Low back pain Brock Jacobs M.D. Onset: 06/05/2016 Obstructive sleep apnea syndrome Brock Jacobs M.D. Onset: 03/03/2015 Hyperlipidemia Brock Jacobs M.D. Onset: 03/03/2015 Arthropathy Brock Jacobs M.D. Onset: 03/03/2015 Malignant tumor of prostate Brock Jacobs M.D. Onset: 02/04/2012 Malaise and fatigue Brock Jacobs M.D. 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 Tablets Sub minutes up to three tabs, call 911 Crestor take 1 by mouth 90tabs Brock Jacobs, 02/14/2013 40mg Tablets daily M.D. Aspirin 1 PO qd Family Medicine 10/03/2007 81mg Chewtabs [facility] Multi Vitamin Mens 1 by mouth every Unknown day Tablets Cymbalta 1 by mouth every Unknown 60mg Caps DR day Part History Medications Azithromycin take 2 tablets by 6tabs Brock Hugo 07/13/2018 - 250mg mouth on day 1 Deedee Jacobs 11/10/2018 Tablets then 1 tablet on days 2 through 5 Tamiflu Take 1 capsule by 10capshawna Hugo 07/13/2018 - 75mg Capsules mouth 2 times per Deedee Jacobs 11/10/2018 day for 5 days for flu Tamiflu Take 1 capsule by 10caps Brock Hugo 07/13/2018 - 75mg Capsules mouth 2 times per Deedee Jacobs 11/10/2018 day for 5 days for flu Gabapentin 1 po bid Brock Hugo 12/21/2017 - 300mg Deedee Jacobs 11/10/2018 Capsules Triamcinolone apply to affected 45gm L23.5 Jeanette Hsu, 08/13/2016 - Acetonide area twice a day M.DEneida 12/20/2017 0.1% Cream Nystatin apply to affected 60gm Brock Hugo 03/03/2015 - 047407Tarn/GM area twice a day Deedee Jacobs 12/20/2017 Cream prn-tid as needed Vytorin 1 po qd 30tabs Brock Hugo 01/20/2013 - 10-80mg Tablets Deedee Jacobs 02/14/2013 Selsun Shampoo apply 1 120ml Brock FEneida 10/06/2012 - 2.5% application Deedee Jacobs 03/03/2015 Lotion topically to affected area daily for 7 days for fungal skin infection Cymbalta 1 po qd 10caps Black A. 12/05/2010 - 60mg Caps DR Evon M.D. 12/15/2010 Part Selsuhenrique Blue Apply qhs From 1units Brock F. 05/14/2010 - 2.5% Lotion Neck Down, Wash Deedee Jacobs 02/04/2012 Off In The Am Keflex po bid 14tabs Brock FEneida 05/14/2010 - 500mg Tablets Deedee Jacobs 05/21/2010 Physical Therapy treatment and 724.2 Brock F. 03/07/2009 - evaluation Deedee Jacobs 06/30/2009 low back pain Vicodin 1 po q4h prn 30tabs Brock FEneida 03/07/2009 - 5-500mg Tablets Deedee Jacobs 02/04/2012 Note [facility] Brock F. 01/02/2008 - Rehab-Please See Deedee Jacobs 01/08/2008 Our PT 11/10/07 Toprol XL 1/2 PO qd Family Medicine 10/03/2007 - 25mg [facility] 03/03/2015 ER 24HR [place] Keflex PO bid 14tabs Brock FEneida 08/09/2007 - 500mg Tablets Deedee Jacobs 10/03/2007 Nystatin Cream apply to affected 30gm Brock F. 08/03/2007 - area twice a day Deedee Jacobs 03/03/2015 prn-tid as needed Hydrocortisone Cream apply tid prn 30gm Brock F. 08/03/2007 - Deedee Jacobs 03/03/2015 2.5% Nitroglyn Sublingual take 1 for chest 25tabs Brock F. 08/03/2007 - pain and repeat Deedee Jacobs 03/03/2015 0.4mg Tablets every 5min x 3 if pain continues Protonix 1po qd 30units Brock FEneida 07/26/2007 - 40mg Deedee Jacobs 06/30/2009 Toprol XL 1/2 po qd Brock FEneida 07/26/2007 - 100mg Tablets Deedee Jacobs 10/03/2007 Baby Asa 1 PO qd Family Medicine 07/26/2007 - 81mg [facility] 07/31/2007 [place] Zocor 1 PO qd Family Medicine 07/26/2007 - 80mg [facility] 01/20/2013 [place] Plavix 1 PO qd Family Medicine 07/26/2007 - 75mg Table[facility] 02/04/2012 [place] Norflex 1 PO bid 30tabs 726.10 Brooks Rios, 05/30/2007 - 100mg Tablets Deedee 06/09/2007 Selsun Blue Apply QHS From 1un Brock FEneida 02/07/2007 - 2.5% Lotion Neck Down, Wash Deedee Jacobs 01/08/2008 Off In The Am Nizoral Cream apply qd 30GMS Brock FEneida 02/07/2007 - Deedee Jacobs 08/09/2007 Physical Therapy treatment and Brock FEneida 06/11/2005 - evaluation low Deedee Jacobs 05/16/2006 back pain and hip pain Doxycycline 1 PO bid 20tabs Brooks Rios, 06/04/2005 - 100mg M.DEneida 06/14/2005 Tablets Medrol Dosepack as Directed 1units Brooks Rios, 06/04/2005 - 4mg M.DEneida 06/17/2005 Mobic 1-2 po qd 60tabs Brock FEneida 08/06/2004 - 7.5mg Tabs eDedee Jacobs 06/04/2005 Lexapro 1 po qd 30units Brock FEneida 08/06/2004 - 10mg Deedee Jacobs 08/06/2004 Lidex Cream apply qid 15gm Brock FEneida 08/06/2004 - 0.05% Deedee Jacobs 05/16/2006 Effexor SR 1 PO qd 30units Brock FEneida 08/06/2004 - 75mg Deedee Jacobs 08/06/2004 Nizoral Cream Apply qd 30GMS Sorin Dodson 08/21/2001 - Deedee Ureña 09/20/2001 Lodine XL 1 PO bid 100units Sorin Dodson 04/20/1999 - 400mg Deedee Ureña 04/20/1999 Voltaren One bid prn Knee 40units Sorin Dodson 04/20/1999 - 75mg Tab Pain Deedee Ureña 05/10/1999 Out Of Work Will Be Out Of Sorin Dodson 04/20/1999 - Work From Deedee Ureña 04/27/1999 04/20/99 until 04/26/99. May Return 04/27/99 Nix Shampoo as Directed 20Z Sorin Dodson 02/18/1998 - Deedee Ureña 04/10/1999 Cymbalta 1 po qd Unknown - 60mg Caps DR 06/05/2016 Part Fish Oil 2 by mouth every Unknown - 1000mg day 06/05/2016 Capsules Gabapentin 1 by mouth twice Unknown - 100mg a day 12/21/2017 Capsules Medications Administered in Office Medication SIG Qnty Indications Ordering Provider Date Injection Subcutaneous Or Nurse, Nurse 01/19/2000 Intramuscular Injection Immunizations CPT Code Status Date Vaccine Lot # [id number] Given 04/15/2018 Influenza Vac, Quadrivalent, [place] [id number] Given 05/30/1997 Td Immunization, For Use In Individuals 7 Years Or Older Vital Signs Date Vital Result Comment 11/10/2018 4:25pm BP Systolic 126 mmHg BP Diastolic 60 mmHg Heart Rate 58 /min Body Temperature 98.1 F Respiratory Rate 16 /min Height 70.25 inches 5'10.25" Weight 222.00 lb BMI (Body Mass Index) 31.6 kg/m2 07/13/2018 1:57pm BP Systolic 120 mmHg BP Diastolic 60 mmHg Heart Rate 56 /min Body Temperature 98.8 F tylenol and ibuprofen 2 hrs ago Respiratory Rate 18 /min Height 70.25 inches 5'10.25" 12/20/2017 7:57pm BP Systolic 118 mmHg BP Diastolic 62 mmHg Heart Rate 52 /min Body Temperature 98.4 F Respiratory Rate 16 /min Height 70.25 inches 5'10.25" Weight 209.00 lb BMI (Body Mass Index) 29.8 kg/m2 08/13/2016 3:19pm BP Systolic 104 mmHg BP Diastolic 60 mmHg Heart Rate 70 /min Body Temperature 98.1 F Height 70.25 inches 5'10.25" Weight 217.25 lb BMI (Body Mass Index) 30.9 kg/m2 06/05/2016 10:10am BP Systolic 110 mmHg BP Diastolic 64 mmHg Heart Rate 56 /min Body Temperature 97.9 F Respiratory Rate 16 /min Height 70.25 inches 5'10.25" Weight 218.12 lb BMI (Body Mass Index) 31.1 kg/m2 03/03/2015 2:30pm BP Systolic 98 mmHg BP Diastolic 60 mmHg Heart Rate 72 /min Body Temperature 97.9 F Respiratory Rate 16 /min Height 70.25 inches 5'10.25" Weight 206.12 lb BMI (Body Mass Index) 29.4 kg/m2 Right Visual Acuity Distance 20/30 Left Visual Acuity Distance 20/40 10/06/2012 4:44pm BP Systolic 116 mmHg BP Diastolic 76 mmHg Heart Rate 66 /min Body Temperature 96.2 F Height 70.25 inches 5'10.25" Weight 218.00 lb BMI (Body Mass Index) 31.1 kg/m2 Right Visual Acuity Distance 20/40 uncorrected Left Visual Acuity Distance 20/25 uncorrected 02/04/2012 8:05am BP Systolic 90 mmHg BP Diastolic 68 mmHg Heart Rate 60 /min Body Temperature 97.1 F Height 70.25 inches 5'10.25" Weight 202.00 lb BMI (Body Mass Index) 28.8 kg/m2 05/14/2010 12:56pm BP Systolic 100 mmHg BP Diastolic 60 mmHg Heart Rate 72 /min Body Temperature 97.4 F Respiratory Rate 14 /min Height 70.25 inches 5'10.25" Weight 200.00 lb BMI (Body Mass Index) 28.5 kg/m2 06/30/2009 5:24pm BP Systolic 90 mmHg BP Diastolic 60 mmHg Heart Rate 56 /min Height 70.25 inches 5'10.25" Weight 200.00 lb BMI (Body Mass Index) 28.5 kg/m2 03/07/2009 8:35am BP Systolic 104 mmHg BP Diastolic 60 mmHg Heart Rate 60 /min Body Temperature 96.3 F Respiratory Rate 16 /min Weight 199.00 lb 07/01/2008 9:47am BP Systolic 100 mmHg BP Diastolic 60 mmHg Heart Rate 60 /min Body Temperature 97.0 F Height 70.25 inches 5'10.25" Weight 196.00 lb BMI (Body Mass Index) 27.9 kg/m2 01/08/2008 1:04pm BP Systolic 92 mmHg BP Diastolic 60 mmHg Heart Rate 52 /min Body Temperature 98.0 F Respiratory Rate 12 /min Height 70.25 inches 5'10.25" Weight 201.00 lb BMI (Body Mass Index) 28.6 kg/m2 10/03/2007 3:21pm BP Systolic 144 mmHg BP Diastolic 66 mmHg Heart Rate 56 /min Body Temperature 98.0 F Height 70.25 inches 5'10.25" Weight 216.00 lb BMI (Body Mass Index) 30.8 kg/m2 08/03/2007 2:12pm BP Systolic 100 mmHg BP Diastolic 58 mmHg Heart Rate 52 /min Body Temperature 96.7 F Respiratory Rate 12 /min Height 70.25 inches 5'10.25" Weight 228.00 lb BMI (Body Mass Index) 32.5 kg/m2 05/30/2007 11:24am BP Systolic 110 mmHg BP Diastolic 64 mmHg Heart Rate 60 /min Body Temperature 97.7 F Respiratory Rate 16 /min Height 70.25 inches 5'10.25" Weight 224.00 lb BMI (Body Mass Index) 31.9 kg/m2 02/07/2007 5:34pm BP Systolic 104 mmHg BP Diastolic 60 mmHg Heart Rate 72 /min Body Temperature 97.8 F Height 70.25 inches 5'10.25" Weight 228.00 lb BMI (Body Mass Index) 32.5 kg/m2 05/16/2006 3:26pm BP Systolic 100 mmHg BP Diastolic 60 mmHg Heart Rate 64 /min Height 70.25 inches 5'10.25" Weight 224.00 lb BMI (Body Mass Index) 31.9 kg/m2 12/09/2005 4:05pm BP Systolic 110 mmHg BP Diastolic 70 mmHg Respiratory Rate 15 /min Height 70.25 inches 5'10.25" Weight 225.00 lb BMI (Body Mass Index) 32.1 kg/m2 07/19/2005 6:10pm BP Systolic 110 mmHg BP Diastolic 66 mmHg Heart Rate 60 /min Height 70.25 inches 5'10.25" Weight 229.00 lb BMI (Body Mass Index) 32.6 kg/m2 06/04/2005 10:19am BP Systolic 118 mmHg LG Cuff BP Diastolic 70 mmHg LG Cuff Heart Rate 72 /min Body Temperature 97.0 F Height 70.25 inches 5'10.25" Weight 218.50 lb BMI (Body Mass Index) 31.1 kg/m2 10/06/2004 3:40pm BP Systolic 78 mmHg Bilaterally BP Diastolic 58 mmHg Bilaterally Heart Rate 52 /min Height 70.25 inches 5'10.25" Weight 214.00 lb BMI (Body Mass Index) 30.5 kg/m2 08/06/2004 9:48am BP Systolic 110 mmHg BP Diastolic 86 mmHg Heart Rate 64 /min Body Temperature 96.2 F Height 70.25 inches 5'10.25" Weight 224.00 lb BMI (Body Mass Index) 31.9 kg/m2 08/21/2001 7:59pm BP Systolic 116 mmHg BP Diastolic 64 mmHg Weight 242.00 lb 04/20/1999 3:41pm BP Systolic 110 mmHg BP Diastolic 80 mmHg Weight 235.00 lb 04/10/1999 3:39pm BP Systolic 114 mmHg LA LG Cuff BP Diastolic 74 mmHg LA LG Cuff Weight 234.00 lb Results Test Date Facility Test Result H/L Range Note Laboratory test 08/15/2018 [facility](a) CK 127 U/L 38-174 1 finding Lipid Profile 08/15/2018 [facility](a) Cholesterol 159 mg/dL 120- 200 Triglycerides 185 mg/dL 30-200 HDL Cholesterol 40 mg/dL 30-70 LDL (Calculated) 82 CALC 0-129 VLDL Cholesterol 37 mg/dL 0-50 HDL Risk Factor 4.0 CALC 0.0-4.4 Comprehensive Metabolic 08/15/2018 [facility](a) Sodium 137 mEq/L 134-149 Prof Potassium 4.0 mEq/L 3.6-5.5 Chloride 108 mEq/L 94-112 Carbon Dioxide 28 mEq/L 21-32 Glucose 82 mg/dL 70-105 BUN 25 mg/dL 6-26 Creatinine 0.9 mg/dL 0.6-1.4 BUN/Creat Ratio 27.8 CALC 8.0-36.0 Calcium 9.0 mg/dL 8.6-10.2 Total Protein 6.4 g/dL 6.4-8.3 Albumin 4.2 g/dL 3.8-5.5 Globulin 2.2 g/dL 2.0-4.8 A/G Ratio 1.9 CALC 0.6-2.3 Alk. Phosphatase 48 U/L 22-95 Alt (SGPT) 23 U/L 7-35 Ast (Sgot) 19 U/L 5-34 Total Bilirubin 0.4 mg/dL 0.2-1.3 GFR Non- >60 ml/min/1.73m^ >=60 GFR >60 ml/min/1.73m^ >=60 Influenza A&B-fma 07/13/2018 [facility] Influenza A POSITIVE # ([phone])- - Influenza B NEG Laboratory test finding 03/02/2018 [facility] Moon(formerly [facility]) CK 182 U/L High 38 -174 2 Comprehensive Metabolic 01/26/2018 [facility] Moon(formerly [facility]) Sodium 139 mEq/L 134-149 Prof Potassium 3.9 mEq/L 3.6-5.5 Chloride 104 mEq/L 94-112 Carbon Dioxide 27 mEq/L 21-32 Glucose 95 mg/dL 70-105 BUN 26 mg/dL 6-26 Creatinine 0.8 mg/dL 0.6-1.4 BUN/Creat Ratio 32.5 CALC 8.0-36.0 Calcium 9.4 mg/dL 8.6-10.2 Total Protein 6.9 g/dL 6.4-8.3 Albumin 4.4 g/dL 3.8-5.5 Globulin 2.5 g/dL 2.0-4.8 A/G Ratio 1.8 CALC 0.6-2.3 Alk. Phosphatase 40 U/L 22-95 Alt (SGPT) 22 U/L 7-35 Ast (Sgot) 22 U/L 5-34 Total Bilirubin 0.5 mg/dL 0.2-1.3 GFR Non- >60 ml/min/1.73m^ >=60 GFR >60 ml/min/1.73m^ >=60 Laboratory test 01/26/2018 [facility] Moon(formerly [facility]) CK 260 U/L High 38-174 3 finding Lipid Profile 01/26/2018 [facility] Moon(formerly [facility]) Cholesterol 200 mg/dL 120- 200 Triglycerides 80 mg/dL 30-200 HDL Cholesterol 45 mg/dL 30-70 LDL (Calculated) 139 CALC High 0-129 VLDL Cholesterol 16 mg/dL 0-50 HDL Risk Factor 4.4 CALC 0.0-4.4 Lipid Profile 12/22/2017 Zhang Moon(a) Cholesterol 148 mg/dL 120- 200 Triglycerides 87 mg/dL 30-200 HDL Cholesterol 48 mg/dL 30-70 LDL (Calculated) 83 CALC 0-129 VLDL Cholesterol 17 mg/dL 0-50 HDL Risk Factor 3.1 CALC 0.0-4.4 Comprehensive Metabolic 12/22/2017 Zhang Moon(formerly [facility]) Sodium 143 mEq/L 134-149 Prof Potassium 4.2 mEq/L 3.6-5.5 Chloride 106 mEq/L 94-112 Carbon Dioxide 28 mEq/L 21-32 Glucose 98 mg/dL 70-105 BUN 20 mg/dL 6-26 Creatinine 0.7 mg/dL 0.6-1.4 BUN/Creat Ratio 28.6 CALC 8.0-36.0 Calcium 10.1 mg/dL 8.6-10.2 Total Protein 7.4 g/dL 6.4-8.3 Albumin 4.7 g/dL 3.8-5.5 Globulin 2.7 g/dL 2.0-4.8 A/G Ratio 1.7 CALC 0.6-2.3 Alk. Phosphatase 40 U/L 22-95 Alt (SGPT) 26 U/L 7-35 Ast (Sgot) 25 U/L 5-34 Total Bilirubin 0.7 mg/dL 0.2-1.3 GFR Non- >60 ml/min/1.73m^ >=60 GFR >60 ml/min/1.73m^ >=60 Laboratory test finding 12/22/2017 Zhang Flora(formerly [facility]) TSH 4.50 mIU/L 0.50-6.00 CK 267 U/L High 38-174 4 PSA <0.1 ng/mL Low 0.0-4.0 5 CBC Electronic a 12/22/2017 [facility](formerly [facility]) WBC 7.1 x10^3/UL 4.0- 10.0 RBC 4.31 x10^6/UL 3.93-6.00 HGB 13.0 g/dL 12.0-17.0 HCT 39 % 35-50 MCV 90.7 fL 80.0-95.0 MCH 30.2 pg 25.6-32.2 MCHC 33.2 g/dL 32.2-36.0 RDW-CV 14.4 % 11.6-14.4 PLT 173 x10^3/UL 163-400 MPV 9.5 fL 9.4-12.4 Davon# 3.25 x10^3/UL 1.56-6.13 Lymph# 2.92 x10^3/UL 1.18-3.74 [place]# 0.74 x10^3/UL 0.24-0.82 Eos # 0.2 x10^3/UL 0.0-0.5 Baso # 0.02 x10^3/UL 0.01-0.08 Davon% 45.8 % 34.0-70.0 Lymph % 41.1 % 20.0-52.0 [place]% 10.4 % 5.0-12.0 Eos% 2.1 % 0.7-7.0 Baso% 0.3 % 0.1-1.2 Laboratory test finding 06/05/2016 [facility] Moon(fma) TSH 2.41 mIU/L 0.50-6.00 6 CK 188 U/L High 38-174 7 PSA <0.1 ng/mL Low 0.0-4.0 8 Comprehensive Metabolic 06/05/2016 Vicente Moon(fma) Sodium 141 mEq/L 134-149 Prof Potassium 4.1 mEq/L 3.6-5.5 Chloride 101 mEq/L 94-112 Carbon Dioxide 25 mEq/L 21-32 Glucose 102 mg/dL 70-105 BUN 20 mg/dL 6-26 Creatinine 0.8 mg/dL 0.6-1.4 BUN/Creat Ratio 25.0 CALC 8.0-36.0 Calcium 9.5 mg/dL 8.6-10.2 Total Protein 6.9 g/dL 6.4-8.3 Albumin 4.4 g/dL 3.8-5.5 Globulin 2.5 g/dL 2.0-4.8 A/G Ratio 1.8 CALC 0.6-2.3 Alk. Phosphatase 33 U/L 22-95 Alt (SGPT) 28 U/L 7-35 Ast (Sgot) 30 U/L 5-34 Total Bilirubin 0.5 mg/dL 0.2-1.3 GFR Non- >60 ml/min/1.73m^ >=60 GFR >60 ml/min/1.73m^ >=60 Lipid Profile 06/05/2016 Zhang Moon(formerly [facility]) Cholesterol 141 mg/dL 120- 200 Triglycerides 57 mg/dL 30-200 HDL Cholesterol 53 mg/dL 30-70 LDL (Calculated) 77 CALC 0-129 VLDL Cholesterol 11 mg/dL 0-50 HDL Risk Factor 2.7 CALC 0.0-4.4 CBC Electronic ([facility]) 06/05/2016 [facility] Medicine WBC 5.9 3.6-9.6 (607)- - RBC 4.42 3.90-5.70 Hemoglobin (Fma/CMC/CTX) 14.2 g/dL 12.1 - 17.2 Hematocrit (Fma/CMC/CTX) 42.3 % 36.1 - 50.3 Platelets 193 10^3/ul 150-400 Lymph% 40.4 % 17.0-48.0 Mixed% 5.7 Neutrophils % 53.9 Mean Corpuscular Vol 96 82.2-97.4 Mean Corpuscular Hemoglobin 32.0 27.6-33.3 Mean Corpuscular Hemo Concen 33.5 32.0-36.0 RDW 13.9 High 11.6-13.7 Mean Platelet Volume 6.8 5.5-11.0 Lipid Profile 03/06/2015 Zhang Flora(formerly [facility]) Cholesterol 129 mg/dL 120- 200 Triglycerides 66 mg/dL 30-200 HDL Cholesterol 48 mg/dL 30-70 LDL (Calculated) 68 CALC 0-129 VLDL Cholesterol 13 mg/dL 0-50 HDL Risk Factor 2.7 CALC 0.0-4.4 Complete Blood Count 03/06/2015 Vic[facility] Moon(formerly [facility]) WBC 6.5 x10^3/UL 3.6 -9.6 RBC 4.27 x10^6/UL 3.90-5.70 HGB 13.9 g/dL 12.1-17.2 HCT 41 % 36-50 MCV 96.0 fL 82.2-97.4 MCH 32.6 pg 27.6-33.3 MCHC 34.0 g/dL 33.0-35.5 RDW 13.4 % 11.6-13.7 PLT 182 x10^3/UL 150-400 MPV 6.4 fL Low 7.4-10.4 Gran # 3.6 x10^3/UL 1.5-7.2 Lymph# 2.5 x10^3/UL 0.7-4.9 [place]# 0.4 x10^3/UL 0.1-0.9 Gran % 54.7 % 42.2-75.2 Lymph % 39.0 % 20.5-51.1 [place]% 6.3 % 1.7-9.3 Comprehensive Metabolic 03/06/2015 Zhang Moon(a) Sodium 139 mEq/L 134-149 Prof Potassium 3.7 mEq/L 3.6-5.5 Chloride 102 mEq/L 94-112 Carbon Dioxide 26 mEq/L 21-32 Glucose 99 mg/dL 70-105 BUN 13 mg/dL 6-26 Creatinine 0.7 mg/dL 0.6-1.4 BUN/Creat Ratio 18.6 CALC 8.0-36.0 Calcium 9.2 mg/dL 8.6-10.2 Total Protein 6.9 g/dL 6.4-8.3 Albumin 4.3 g/dL 3.8-5.5 Globulin 2.6 g/dL 2.0-4.8 A/G Ratio 1.7 CALC 0.6-2.3 Alk. Phosphatase 36 U/L 22-95 Alt (SGPT) 27 U/L 7-35 Ast (Sgot) 26 U/L 5-34 Total Bilirubin 0.8 mg/dL 0.2-1.3 GFR Non- >60 ml/min/1.73m^ >=60 GFR >60 ml/min/1.73m^ >=60 Laboratory test finding 03/06/2015 Zhang Moon(a) TSH 3.06 mIU/L 0.50-6.00 9 CK 169 U/L 38-174 PSA <0.1 ng/mL Low 0.0-4.0 10 Ua - Non Micro (Fma) 03/03/2015 [facility] Appearance CLEAR (607)- - Color YELLOW Glucose, Urine (Fma/CMC/CTX) NEG Bilirubin ICTO:NEG Ketones TRACE # SP Grav 1.020 Blood NEG PH 5.0 Protein NEG Urobil 1.0 Nitrite NEG Leukocytes (Fma/CMC/[facility]) NEG Comprehensive Metabolic 10/29/2014 Zhang Moon(fma) Sodium 137 mEq/L 134-149 Prof Potassium 4.0 mEq/L 3.6-5.5 Chloride 99 mEq/L 94-112 Carbon Dioxide 27 mEq/L 21-32 Glucose 95 mg/dL 70-105 BUN 12 mg/dL 6-26 Creatinine 0.7 mg/dL 0.6-1.4 BUN/Creat Ratio 17.1 CALC 8.0-36.0 Calcium 9.2 mg/dL 8.6-10.2 Total Protein 6.8 g/dL 6.4-8.3 Albumin 4.2 g/dL 3.8-5.5 Globulin 2.6 g/dL 2.0-4.8 A/G Ratio 1.6 CALC 0.6-2.3 Alk. Phosphatase 36 U/L 22-95 Alt (SGPT) 26 U/L 7-35 Ast (Sgot) 29 U/L 5-34 Total Bilirubin 0.5 mg/dL 0.2-1.3 Lipid Profile 10/29/2014 [facility]) Cholesterol 97 mg/dL Low 120 -200 11 Triglycerides 63 mg/dL 30-200 HDL Cholesterol 37 mg/dL 30-70 LDL (Calculated) 47 CALC 0-129 VLDL Cholesterol 13 mg/dL 0-50 HDL Risk Factor 2.6 CALC 0.0-4.4 Complete Blood Count 10/29/2014 [facility] Must[facility]) WBC 4.2 x10^3/UL 3.6 -9.6 RBC 4.07 x10^6/UL 3.90-5.70 HGB 13.2 g/dL 12.1-17.2 HCT 38 % 36-50 MCV 94.0 fL 82.2-97.4 MCH 32.6 pg 27.6-33.3 MCHC 34.5 g/dL 33.0-35.5 RDW 13.8 % High 11.6-13.7 PLT 198 x10^3/UL 150-400 MPV 7.2 fL Low 7.4-10.4 Gran # 2.1 x10^3/UL 1.5-7.2 Lymph# 1.8 x10^3/UL 0.7-4.9 [place]# 0.3 x10^3/UL 0.1-0.9 Gran % 47.3 % 42.2-75.2 Lymph % 45.3 % 20.5-51.1 [place]% 7.4 % 1.7-9.3 Laboratory test 10/29/2014 [facility]) PSA <0.1 ng/mL Low 0.0- 4.0 12 finding Lipid Profile 12/21/2012 [facility](a) Cholesterol 167 mg/dL 120- 200 HDL 37 mg/dL 30-70 Triglycerides 95 mg/dL 30-200 HDL Risk Factor 4.6 CALC High 0.0-4.4 LDL (Calculated) 111 CALC 0-129 VLDL (Calculated) 19 mg/dL 0-50 Comprehensive Metabolic 12/21/2012 [facility]) Albumin 4.7 g/dL 3.8-5.5 Prof Alk. Phos. 41 U/L 22-95 Alt (SGPT) 28 U/L 10-40 Ast (Sgot) 28 U/L 5-34 BUN 17 mg/dL 6-26 Calcium 9.2 mg/dL 8.6-10.2 Chloride 96 mEq/L 94-112 Creatinine 0.8 mg/dL 0.6-1.4 Carbon Dioxide 24 mEq/L 21-32 Glucose 90 mg/dL 70-105 Sodium 138 mEq/L 134-149 Total Bilirubin 0.7 mg/dL 0.2-1.3 Total Protein 6.8 g/dL 6.3-8.1 Potassium 4.0 mEq/L 3.6-5.5 Globulin 2.1 g/dL 2.0-4.8 A/G Ratio 2.3 Calc 0.6-2.3 BUN/Creat Ratio 20.8 Calc 8.0-36.0 Laboratory test finding 12/21/2012 [facility]) TSH 2.59 mIU/L 0.50-6.00 Creatine Kinase 192 U/L High 38-174 13 Laboratory test 12/21/2012 [facility] Rheumatoid Arth 8.1 IU/mL 0.0-13.9 14 finding [address] [place] [address] [phone] Lyme Igg/M 12/21/2012 [facility] Lyme IgG/IgM Ab <0.91 0.00-0.90 15 W/RFX [address] [place] [address] [phone] Lyme Disease Ab, Quant, IgM <0.91 index 0.00-0.90 16 Laboratory test 12/21/2012 [facility] Testosterone, 366 ng/dL [phone] finding [address] [place] [address] [phone] C-Reactive Protein 0.5 mg/L 0.0-5.0 CBC Electronic (a) 12/21/2012 [facility] Medicine WBC 5.5 3.6-9.6 (607)- - RBC 4.59 3.90-5.70 Hemoglobin (Fma/CMC/CTX) 14.4 g/dL 12.1 - 17.2 Hematocrit (Fma/CMC/CTX) 44.7 % 36.1 - 50.3 Platelets 184 10^3/ul 150-400 Lymph% 37.8 20.5-51.1 Mixed% 7.7 Neutrophils % 54.5 Mean Corpuscular Vol 97 82.2-97.4 Mean Corpuscular Hemoglobin 31.5 27.6-33.3 Mean Corpuscular Hemo Concen 32.4 32.0-36.0 RDW 12.5 11.6-13.7 Mean Platelet Volume 7.0 6.5-11.0 Ua - Non Micro (a) 10/06/2012 [facility] Appearance clear (607)- - Color yellow Glucose neg Bilirubin neg Ketones trace SP Grav 1.025 Blood neg PH 7.0 Protein neg Urobil 0.2 Nitrite neg Leukocytes (a/CMC/[facility]) neg Laboratory test 08/02/2012 [facility](formerly [facility]) PSA < 0.05 Low 0.00-4.00 finding ng/mL Laboratory test 02/04/2012 [facility] Testosterone, 407 ng/dL [phone] finding [address] [place], [place] [id number] [phone] Ua - Non Micro 02/04/2012 [facility] Appearance clear (a) (607)- - Color yellow Glucose, Urine (Fma/CMC/CTX) neg Bilirubin neg Ketones ng SP Grav 1.010 Blood neg PH 7.0 Protein neg Urobil 0.2 Nitrite neg Leukocytes (a/CMC/[facility]) neg CBC Electronic ([facility]) 02/04/2012 [facility] WBC 4.2 3.6-9.6 (607)- - RBC 4.51 3.90-5.70 Hemoglobin (Fma/CMC/CTX) 14.3 g/dL 12.1 - 17.2 Hematocrit (Fma/CMC/CTX) 42.9 % 36.1 - 50.3 Platelets 171 10^3/ul 150-400 Lymph% 36.1 20.5-51.1 Mixed% 7.3 Neutrophils % 56.6 Mean Corpuscular Vol 95 82.2-97.4 Mean Corpuscular Hemoglobin 31.8 27.6-33.3 Mean Corpuscular Hemo Concen 33.4 32.0-36.0 RDW 11.5 Low 11.6-13.7 Mean Platelet Volume 7.3 6.5-11.0 Lipid Profile 02/04/2012 [facility] Mustafa(formerly [facility]) Cholesterol 118 mg/dL Low 120-200 17 HDL 38 mg/dL 30-70 Triglycerides 42 mg/dL 30-200 HDL Risk Factor 3.1 CALC 0.0-4.0 LDL (Calculated) 71 CALC 0-129 VLDL (Calculated) 8 mg/dL 0-50 Comprehensive Metabolic 02/04/2012 Vic[facility] Mustafa(formerly [facility]) Albumin 4.5 g/dL 3.8-5.5 Prof Alk. Phos. 41 U/L 22-95 Alt (SGPT) 21 U/L 10-40 Ast (Sgot) 32 U/L 5-34 BUN 16 mg/dL 6-26 Calcium 8.8 mg/dL 8.6-10.2 Chloride 95 mEq/L 94-112 Creatinine 0.8 mg/dL 0.6-1.4 Carbon Dioxide 23 mEq/L 21-32 Glucose 98 mg/dL 70-105 Sodium 135 mEq/L 134-149 Total Bilirubin 0.8 mg/dL 0.2-1.3 Total Protein 6.9 g/dL 6.3-8.1 Potassium 4.0 mEq/L 3.6-5.5 Globulin 2.4 g/dL 2.0-4.8 A/G Ratio 1.9 Calc 0.6-2.2 BUN/Creat Ratio 19.9 Calc 8.0-36.0 Laboratory test 02/04/2012 [facility] Mustafa(formerly [facility]) Free T4 1.05 ng/dL 0.75- 1.54 finding TSH 2.06 mIU/L 0.50-6.00 Creatine Kinase 186 U/L High 38-174 18 PSA < 0.05 ng/mL Low 0.00-4.00 Laboratory test 08/03/2011 Vicente Mustafa(formerly [facility]) PSA < 0.06 Low 0.00-4.00 finding ng/mL Laboratory test 02/17/2011 Vicente Moon(formerly [facility]) Creatine 115 U/L 38-174 19 finding Kinase LDL (Direct) 97 mg/dL 0-130 Laboratory test 09/10/2010 Vicente Moon(formerly [facility]) PSA < 0.06 ng/mL Low 0.00- 4.00 finding Comprehensive 05/14/2010 Vicente Mustafa(formerly [facility]) Albumin 4.2 g/dL 3.8-5.5 Metabolic Prof Alk. Phos. 31 U/L 22-95 Alt (SGPT) 16 U/L 10-40 Ast (Sgot) 23 U/L 5-34 BUN 17 mg/dL 6-26 Calcium 9.3 mg/dL 8.6-10.2 Chloride 100 mEq/L 94-112 Creatinine 0.7 mg/dL 0.6-1.4 Carbon Dioxide 27 mEq/L 21-32 Glucose 79 mg/dL 70-105 Sodium 141 mEq/L 134-149 Total Bilirubin 0.5 mg/dL 0.2-1.3 Total Protein 7.4 g/dL 6.3-8.1 Potassium 3.7 mEq/L 3.6-5.5 Globulin 3.2 g/dL 2.0-4.8 A/G Ratio 1.3 Calc 0.6-2.2 BUN/Creat Ratio 24.1 Calc 8.0-36.0 Laboratory test 05/14/2010 Vicente Mustafa(formerly [facility]) Free T4 1.08 ng/dL 0.75- 1.54 finding TSH 2.26 mIU/L 0.50-6.00 PSA < 0.05 ng/mL Low 0.00-4.00 CBC ([facility]) 05/14/2010 Family Medicine WBC 6.5 3.6-9.6 (607)- - RBC 4.40 3.90-5.70 Hemoglobin (Fma/CMC/CTX) 14.2 g/dL 12.1 - 17.2 Hematocrit (Fma/CMC/CTX) 41.8 % 36.1 - 50.3 Platelets 170 10^3/ul 150-400 Lymph% 34.4 20.5-51.1 Mixed% 12.4 Neutrophils % 53.2 Mean Corpuscular Vol 95.0 82.2-97.4 Mean Corpuscular Hemoglobin 32.3 27.6-33.3 Mean Corpuscular Hemo Concen 34.0 33.0-36.0 RDW 13.1 11.6-13.7 Mean Platelet Volume 10.3 7.4-10.4 Laboratory test 05/14/2010 [facility] Testosterone, 269 ng/dL Low 280-800 finding [address] [place], [place] [id number] [phone] Lipid Profile 12/31/2009 Vicente Mustafa(fma) Cholesterol 136 mg/dL 120- 200 HDL 35 mg/dL 30-70 Triglycerides 68 mg/dL 30-200 HDL Risk Factor 3.9 CALC Low 4.2-7.0 LDL (Calculated) 88 CALC 0-129 VLDL (Calculated) 14 mg/dL 0-50 Comprehensive Metabolic 12/31/2009 Vicente Mustafa(a) Albumin 4.5 g/dL 3.8-5.5 Prof Alk. Phos. 32 U/L 22-95 Alt (SGPT) 17 U/L 10-40 Ast (Sgot) 23 U/L 5-34 BUN 17 mg/dL 6-26 Calcium 9.5 mg/dL 8.6-10.2 Chloride 101 mEq/L 94-112 Creatinine 0.7 mg/dL 0.6-1.4 Carbon Dioxide 27 mEq/L 21-32 Glucose 93 mg/dL 70-105 Sodium 141 mEq/L 134-149 Total Bilirubin 0.8 mg/dL 0.2-1.3 Total Protein 7.1 g/dL 6.3-8.1 Potassium 4.1 mEq/L 3.6-5.5 Globulin 2.7 g/dL 2.0-4.8 A/G Ratio 1.7 Calc 0.6-2.2 BUN/Creat Ratio 24.1 Calc 8.0-36.0 Laboratory test 12/31/2009 Vicente Mustafa(fma) Creatine Kinase 107 U/L 38-174 finding B12 921 pg/mL 230-1050 Lipid Profile 03/07/2009 Vicente Mustafa(fma) Cholesterol 137 mg/dL 120- 200 20 HDL 42 mg/dL 30-70 Triglycerides 103 mg/dL 30-200 HDL Risk Factor 3.2 CALC Low 4.2-7.0 LDL (Calculated) 74 CALC 0-129 VLDL (Calculated) 21 mg/dL 0-50 Comprehensive Metabolic 03/07/2009 Zhang Moon(formerly [facility]) Albumin 4.4 g/dL 3.8-5.5 Prof Alk. Phos. 37 U/L 22-95 Alt (SGPT) 20 U/L 10-40 Ast (Sgot) 20 U/L 5-34 BUN 17 mg/dL 6-26 Calcium 9.7 mg/dL 8.6-10.2 Chloride 99 mEq/L 94-112 Creatinine 0.8 mg/dL 0.6-1.4 Carbon Dioxide 28 mEq/L 21-32 Glucose 96 mg/dL 70-105 Sodium 139 mEq/L 134-149 Total Bilirubin 0.6 mg/dL 0.2-1.3 Total Protein 7.2 g/dL 6.3-8.1 Potassium 4.4 mEq/L 3.6-5.5 Globulin 2.8 g/dL 2.0-4.8 A/G Ratio 1.6 Calc 0.6-2.2 BUN/Creat Ratio 20.1 Calc 8.0-36.0 Laboratory test 03/07/2009 Zhang Moon(formerly [facility]) Creatine Kinase 120 U/L 38-174 finding TSH 2.21 mIU/L 0.50-6.00 Ua - Micro (a) 03/07/2009 Family Medicine Appearance clear (607)- - Color yellow Glucose, Urine (Fma/CMC/CTX) neg Bilirubin neg Ketones neg SP Grav 1.020 Blood neg PH 6.5 Protein neg Urobil 0.2 Nitrite neg Leukocytes (Fma/CMC/[facility]) neg Hyaline - /Lpf Granular - /Lpf WBC (Fma,[facility]) 1-2 RBC 1-2 Mucus (Fma/CBC/[facility]) - /Lpf Epith - /Lpf Bacteria - /Hpf Amorphous (Fma/CMC/[facility]) - /Lpf Crystals, Fluid (Fma/CMC/CTX) - Z#Comments - Laboratory 03/07/2009 [facility] Lyme 0.17 Negative 21 test finding [address] Disease,Igg/Igm INDEX [place], [place] [id number] [phone] Laboratory 03/07/2009 Vicente Mustafa(formerly [facility]) PSA < 0.05 Low 0.00-4.00 22 test finding ng/mL Lipid Profile 07/01/2008 Vicente Mustafa(formerly [facility]) Cholesterol 127 120-200 mg/dL HDL 32 mg/dL 30-70 Triglycerides 82 mg/dL 30-200 HDL Risk Factor 4.0 CALC Low 4.2-7.0 LDL (Calculated) 79 CALC 0-129 VLDL (Calculated) 16 mg/dL 0-50 Comprehensive Metabolic 07/01/2008 Vicente Mustafa(formerly [facility]) Albumin 4.4 g/dL 3.8-5.5 Prof Alk. Phos. 36 U/L 22-95 Alt (SGPT) 20 U/L 10-40 Ast (Sgot) 27 U/L 5-34 BUN 15 mg/dL 6-26 Calcium 9.9 mg/dL 8.6-10.2 Chloride 102 mEq/L 94-112 Creatinine 0.9 mg/dL 0.6-1.4 Carbon Dioxide 29 mEq/L 21-32 Glucose 89 mg/dL 70-105 Sodium 142 mEq/L 134-149 Total Bilirubin 0.6 mg/dL 0.2-1.3 Total Protein 7.2 g/dL 6.3-8.1 Potassium 4.2 mEq/L 3.6-5.5 Globulin 2.8 g/dL 2.0-4.8 A/G Ratio 1.6 Calc 0.6-2.2 BUN/Creat Ratio 17.0 Calc 8.0-36.0 Complete Blood Count 07/01/2008 Vicente Mustafa(formerly [facility]) WBC 5.3 x10^3/uL 3.6 -9.6 Gran# 3.0 x10^3/uL 1.5-7.2 Gran% 55.8 % 42.2-75.2 HCT 44 % 36-50 HGB 15.0 g/dL 12.1-17.2 Lymph# 2.0 x10^3/uL 0.7-4.9 Lymph% 37.2 % 20.5-51.1 MCH 31.3 pg 27.6-33.3 MCV 92.4 fL 82.2-97.4 MCHC 33.9 g/dL 33.0-35.5 Mo# 0.4 x10^3/uL 0.1-0.9 Mo% 7.0 % 1.7-9.3 MPV 7.7 fL 7.4-10.4 PLT 194 x10^3/uL 150-400 RBC 4.78 x10^6/uL 3.90-5.70 RDW 12.3 % 11.6-13.7 Lipid Profile 01/18/2008 Vicente Mustafa(formerly [facility]) Cholesterol 121 mg/dL 120- 200 HDL 39 mg/dL 30-70 Triglycerides 63 mg/dL 30-200 HDL Risk Factor 3.1 CALC Low 4.2-7.0 LDL (Calculated) 69 CALC 0-129 VLDL (Calculated) 13 mg/dL 0-50 Complete Blood Count 01/18/2008 Vicente Mustafa(formerly [facility]) WBC 4.6 x10^3/u 3.6- 9.6 Gran# 3.0 x10^3/u 1.5-7.2 Gran% 64.7 % 42.2-75.2 HCT 40 % 36-50 HGB 13.7 g/dL 12.1-17.2 Lymph# 1.4 x10^3/u 0.7-4.9 Lymph% 30.2 % 20.5-51.1 MCH 31.0 pg 27.6-33.3 MCV 90.9 fL 82.2-97.4 MCHC 34.1 g/dL 33.0-35.5 Mo# 0.2 x10^3/u 0.1-0.9 Mo% 5.1 % 1.7-9.3 MPV 9.1 fL 7.4-10.4 PLT 171 x10^3/u 150-400 RBC 4.41 x10^6/u 3.90-5.70 RDW 12.5 % 11.6-13.7 Comprehensive Metabolic 01/18/2008 Vicente Mustafa(formerly [facility]) Albumin 4.1 g/dL 3.8-5.5 Prof Alk. Phos. 37 U/L 22-95 Alt (SGPT) 21 U/L 10-40 Ast (Sgot) 28 U/L 5-34 BUN 15 mg/dL 6-26 Calcium 9.6 mg/dL 8.6-10.2 Chloride 103 mEq/L 94-112 Creatinine 0.9 mg/dL 0.6-1.4 Carbon Dioxide 22 mEq/L 21-32 Glucose 94 mg/dL 70-105 Sodium 139 mEq/L 134-149 Total Bilirubin 0.6 mg/dL 0.2-1.3 Total Protein 7.0 g/dL 6.3-8.1 Potassium 4.0 mEq/L 3.6-5.5 Globulin 2.9 g/dL 2.0-4.8 A/G Ratio 1.4 Calc 0.6-2.2 BUN/Creat Ratio 16.4 Calc 8.0-36.0 Laboratory test finding 01/18/2008 Vicente Moon(a) TSH 2.13 mIU/L 0.50-6.00 PSA < 0.06 ng/mL Low 0.00-4.00 Ua - Non Micro (Fma) 01/18/2008 Family Medicine Appearance CLEAR (607)- - Color YELLOW Glucose, Urine (Fma/CMC/CTX) NEGATIVE Bilirubin NEGATIVE Ketones NEGATIVE SP Grav 1.010 Blood NEGATIVE PH 6.5 Protein NEGATIVE Urobil 0.2 Nitrite NEGATIVE Leukocytes (Fma/CMC/[facility]) NEGATIVE Lipid Profile 09/04/2007 Vicente Moon(fma) Cholesterol 99 mg/dL Low 120 -200 23 HDL 34 mg/dL 30-70 Triglycerides 55 mg/dL 30-200 HDL Risk Factor 2.9 CALC Low 4.2-7.0 LDL (Calculated) 55 CALC 0-129 VLDL (Calculated) 11 mg/dL 0-50 Complete Blood Count 09/04/2007 Vicente Moon(fma) WBC 5.1 x10^3/u 3.6- 9.6 Gran# 3.1 x10^3/u 1.5-7.2 Gran% 61.5 % 42.2-75.2 HCT 43 % 36-50 HGB 14.8 g/dL 12.1-17.2 Lymph# 1.5 x10^3/u 0.7-4.9 Lymph% 29.9 % 20.5-51.1 MCH 32.6 pg 27.6-33.3 MCV 94.3 fL 82.2-97.4 MCHC 34.5 g/dL 33.0-35.5 Mo# 0.4 x10^3/u 0.1-0.9 Mo% 8.6 % 1.7-9.3 MPV 8.4 fL 7.4-10.4 PLT 162 x10^3/u 150-400 RBC 4.55 x10^6/u 3.90-5.70 RDW 13.1 % 11.6-13.7 Comprehensive Metabolic 09/04/2007 Zhang Moon(fma) Albumin 4.1 g/dL 3.8-5.5 Prof Alk. Phos. 32 U/L 22-95 Alt (SGPT) 26 U/L 10-40 Ast (Sgot) 34 U/L 5-34 BUN 16 mg/dL 6-26 Calcium 9.5 mg/dL 8.6-10.2 Chloride 104 mEq/L 94-112 Creatinine 1.1 mg/dL 0.6-1.4 Carbon Dioxide 26 mEq/L 21-32 Glucose 94 mg/dL 70-105 Sodium 143 mEq/L 134-149 Total Bilirubin 0.6 mg/dL 0.2-1.3 Total Protein 6.9 g/dL 6.3-8.1 Potassium 4.6 mEq/L 3.6-5.5 Globulin 2.8 g/dL 2.0-4.8 A/G Ratio 1.5 Calc 0.6-2.2 BUN/Creat Ratio 15.0 Calc 8.0-36.0 CBC With Electronic Diff Stat 07/22/2007 [facility] White Blood Count 8.1 CUMM 4.8-10.8 Abs Basophils 0 0-0.2 Abs Eosinophils 0.1 0-0.6 Absolute Neutrophil Count 4.6 1.5-7.7 Abs Lymphs 2.7 1.0-4.8 Abs Mononuclear 0.7 0-0.8 Basophil % 0.3 % 0-2 Hematocrit 49 % 42-52 Hemoglobin 15.7 g/dL 14.0-18.0 Eosinophil % 1.7 % 0-6 Gran % 56.9 % 38-83 Lymph % 32.9 % 20-45 Mean Corpuscular HGB Cone 33 g/dL 32-36 Mean Corpuscular Hemoglob 29 pg 27-31 Mean Corpuscular Volume 91 um3 80-94 Mean Platelet Volume 7.9 um3 7.4-10.4 Mononuclear % 8.2 % 1-9 Platelet Count 242 CUMM 150-450 Red Cell Count 5.36 CUMM 4.6-6.2 Redcell Distribution WDTH 13 % 10.5-15 Comp Stat 07/22/2007 [facility] One Over Creatinine 1.11 Anion Gap 7.0 mmol/L 2-11 24 Albumin/Globulin Ratio 1.3 1-3 Albumin 4.2 GM/DL 3.6-5.4 Alkaline Phosphatase 40 U/L 39-117 Alt (SGPT) 35 U/L 17-63 Ast (Sgot) 33 U/L 12-42 BUN 20 mg/dL 6-24 Calcium 8.9 mg/dL 8.7-10.2 Chloride 105 mmol/L 101-111 Co2 (Carbon Dioxide) 25.0 mmol/L 22-32 Globulin 3.2 GM/DL 2-4 Glucose 97 mg/dL 70-105 Potassium 3.5 mmol/L 3.5-5.0 Sodium 137 mmol/L 135-145 Bilirubin Total 0.6 mg/dL 0.4-1.5 Total Protein 7.4 GM/DL 6.2-8.1 BUN/Creatinine Ratio 22.2 High 8-20 Creatinine 0.9 mg/dL 0.5-1.4 Laboratory test 07/22/2007 [facility] Troponin-I (TnI) 0.02 NG/ML 0-0.06 25 finding Lipid Profile 02/09/2007 Vicente Mustafa(a) Cholesterol 233 mg/dL High 120-200 HDL 39 mg/dL 30-70 Triglycerides 126 mg/dL 30-200 HDL Risk Factor 6.0 CALC 4.2-7.0 LDL (Calculated) 169 CALC High 0-129 VLDL (Calculated) 25 mg/dL 0-50 Complete Blood Count 02/09/2007 Vicente Mustafa(fma) WBC 7.5 x10\\S\\3/uL 3.6-9.6 Gran# 4.3 x10\\S\\3/uL 1.5-7.2 Gran% 57.3 % 42.2-75.2 HCT 44 % 36-50 HGB 15.4 g/dL 12.1-17.2 Lymph# 2.7 x10\\S\\3/uL 0.7-4.9 Lymph% 36.2 % 20.5-51.1 MCH 32.0 pg 27.6-33.3 MCV 92.3 fL 82.2-97.4 MCHC 34.7 g/dL 33.0-35.5 Mo# 0.5 x10\\S\\3/uL 0.1-0.9 Mo% 6.5 % 1.7-9.3 MPV 7.9 fL 7.4-10.4 PLT 204 x10\\S\\3/uL 150-400 RBC 4.82 x10\\S\\6/uL 3.90-5.70 RDW 12.1 % 11.6-13.7 Comprehensive Metabolic 02/09/2007 Zhang Moon(formerly [facility]) Albumin 4.3 g/dL 3.8-5.5 Prof Alk. Phos. 34 U/L 22-95 Alt (SGPT) 27 U/L 10-40 Ast (Sgot) 25 U/L 5-34 BUN 14 mg/dL 6-26 Calcium 9.6 mg/dL 8.6-10.2 Chloride 98 mEq/L 94-112 Creatinine 0.9 mg/dL 0.6-1.4 Carbon Dioxide 29 mEq/L 21-32 Glucose 84 mg/dL 70-105 Sodium 138 mEq/L 134-149 Total Bilirubin 0.8 mg/dL 0.2-1.3 Total Protein 7.4 g/dL 6.3-8.1 Potassium 4.2 mEq/L 3.6-5.5 Globulin 3.0 g/dL 2.0-4.8 A/G Ratio 1.4 Calc 0.6-2.2 BUN/Creat Ratio 15.5 Calc 8.0-36.0 Laboratory test 02/09/2007 Zhang Moon(formerly [facility]) PSA < 0.05 ng/mL Low 0.00- 4.00 finding Ua - Non Micro 02/09/2007 [facility] Appearance CLEAR ([facility]) (607)- - Color LT YELLOW Glucose, Urine ([facility]/CTX) NEG Bilirubin NEG Ketones NEG SP Grav <=1.005 Blood NEG PH 5.0 Protein NEG Urobil 0.2 Nitrite NEG Leukocytes ([facility]) NEG Laboratory test 07/05/2006 [facility] PSA ([facility]) <0.05 0.0- 4.0 finding (607)- - Laboratory test 03/28/2006 [facility] Labs PSA See Image finding Report Comp Metabolic 12/10/2005 [facility] Glucose, Serum 88 mg/dL 70- 105 (Fma) Male (607)- - (Fma/CMC/CTX) BUN (Fma/CMC/[facility]) 16 mg/dL 6-26 Creatinine (Fma/CMC/CTX) 0.9 mg/dL 0.6-1.4 BUN/Creatinin Ratio 17.8 8.0-36 Sodium 135 134-149 Potassium 3.7 3.6-5.5 Chloride 98 mEq/L 94-112 Co2 30 21-32 Calcium (Fma/CMC/[facility]) 9.8 mg/dL 8.6-10.2 Total Protein 7.0 g/dL 6.3-8.1 Albumin (Fma/CMCC/[facility]) 4.2 3.8-5.5 Globulin 2.8 2.0-4.8 A/G Ratio (Fma/CMC/[facility]) 1.5 0.6-2.2 Alk Phos (a) Male 40 U/L 22-95 Alt-M SGPT Male (a) 21 10-40 Ast Sgot 23 U/L 5-34 Bilirubin, Total 0.8 mg/dL 0.2-1.3 Lipid 12/10/2005 [facility] Cholesterol 196 mg/dL 120-200 Profile([facility]) Male (607)- - (Fma/CMC/[facility]) Triglyceride 91 mg/dL 30-200 HDL Cholesterol (a) Male 37 mg/dL 30-70 LDL, Calculated (a/CMC) 140 CALC High 0-129 LDL Direct (FM/CMC/[facility]) - mg/dL 0-130 VLDL 18 0-50 HDL Risk Factor ([facility]) 5.2 CALC 4.2-7.0 Laboratory test 12/10/2005 [facility] PSA (a/CMC/[facility]) <0.05 0.0-4.0 finding (607)- - CBC Electronic 12/10/2005 [facility] WBC 6.8 3.6-9.6 (a) (607)- - Lymphocytes 33.3 % 20.5 - 51.1 Monocytes 6.4 % 1.7-9.3 Granulocytes 60.3 % 42.2 - 75.2 Lymphocytes 2.3 10^3/uL 0.7 - 4.9 Monocytes 0.4 10^3/uL 0.1 - 0.9 Granulocytes 4.1 10^3/uL 1.5 - 7.2 RBC 4.75 3.90-5.70 Hemoglobin (Fma/CMC/CTX) 14.5 g/dL 12.1 - 17.2 Hematocrit (Fma/CMC/CTX) 42.5 % 36.1 - 50.3 Mean Corpuscular Vol 89.6 82.2-97.4 Mean Corpuscular Hemaglobin 30.6 27.6-33.3 Mean Corpuscular Hemo Concen 34.1 33.0-36.0 RDW 12.6 11.6-13.7 Platelets 228. 10^3/ul 150-400 Mean Platelet Volume 7.8 7.4-10.4 Laboratory 07/28/2005 [facility] CMP;CBC;PT;PTT; TYPE See test finding Image Report Laboratory 03/18/2005 Family [facility] PSA 0.40 0.0-4.0 test finding (607)- - Lipid 10/22/2004 [facility] Cholesterol 180 mg/dL 120-200 Profile(a) (607)- - Male Triglyceride 66 mg/dL 30-200 HDL Cholesterol (Fma) Male 36 mg/dL 30-70 LDL, Calculated (a/CMC) 131 CALC High 0-129 LDL, Direct - mg/dL 0-130 VLDL 13 0-50 HDL Risk Factor (Fma) 5.0 CALC 4.2-7.0 Ua - Non Micro (a New) 08/06/2004 [facility] Appearance CLEAR (607)- - Color YELLOW Glucose NEG Bilirubin NEG Ketones NEG SP Grav 1.015 Blood NEG PH 6.5 Protein NEG Urobil 0.2 Nitrite NEG Leukocytes NEG Laboratory test 08/06/2004 [facility] TSH (a/CMC/[facility]) 2.64 0.5-6.0 finding (607)- - uIU/ml Lipid 08/06/2004 [facility] Cholesterol 228 mg/dL High 120-200 Profile(a) (607)- - Male Triglyceride 147 mg/dL 30-200 HDL Cholesterol (Fma) Male 34 mg/dL 30-70 LDL, Calculated (Fma/CMC) 165 CALC High 0-129 LDL, Direct - mg/dL 0-130 VLDL 29 0-50 HDL Risk Factor (Fma) 6.8 CALC 4.2-7.0 Comp Metabolic 08/06/2004 [facility] Glucose, Serum 82 mg/dL 70- 118 ([facility]) Male (607)- - (Fma/CMC/CTX) BUN (Fma/CMC/[facility]) 20 mg/dL 6-26 Creatinine (Fma/CMC/CTX) 0.9 mg/dL 0.6-1.4 BUN/Creatinin Ratio 22.3 8.0-36 Sodium 139 134-149 Potassium 4.0 3.6-5.5 Chloride 100 mEq/L 94-112 Co2 29 21-32 Calcium (Fma/CMC/[facility]) 9.7 mg/dL 8.6-10.2 Total Protein 7.8 g/dL 6.3-8.1 Albumin (a/CMCC/[facility]) 4.4 3.8-5.5 Globulin 3.3 2.0-4.8 A/G Ratio (Fma/CMC/[facility]) 1.3 0.6-2.2 Alk Phos ([facility]) Male 46 U/L 22-95 Alt (SGPT) 28 10-40 Ast (Sgot) (Fma/CMC/[facility]) 23 U/mL 5-34 Total Bilirubin 0.8 CBC Electronic ([facility]) 08/06/2004 [facility] WBC 6.6 3.6-9.6 (607)- - Lymphocytes 32.4 % 20.5 - 51.1 Monocytes 7.2 % 1.7-9.3 Granulocytes 60.4 % 42.2 - 75.2 Lymphocytes 2.1 10^3/uL 0.7 - 4.9 Monocytes 0.5 10^3/uL 0.1 - 0.9 Granulocytes 4.0 10^3/uL 1.5 - 7.2 RBC 5.22 3.90-5.70 Hemoglobin (Fma/CMC/CTX) 16.5 g/dL 12.1 - 17.2 Hematocrit (Fma/CMC/CTX) 49.0 % 36.1 - 50.3 Mean Corpuscular Vol 93.9 82.2-97.4 Mean Corpuscular Hemaglobin 31.7 27.6-33.3 Mean Corpuscular Hemo Concen 33.7 33.0-35.5 RDW 12.3 11.6-13.7 Platelets 221. 10^3/ul 150-400 Mean Platelet Volume 7.5 7.4-10.4 Laboratory test finding 03/09/2000 [facility] Glucose 129 mg/dL Total Protein 6.0 GM/DL CBC Electronic ([facility]) 02/26/2000 [facility] WBC 7.2 CUMM 4.8-10.8 RBC 5.07 CUMM 4.2-5.4 Hemoglobin 15.1 g/dL 12.0-16.0 Hematocrit 46 % 35-47 Mean Corpuscular Vol 91 um3 79-97 Mean Corpuscular Hemaglobin 30 pg 27-31 Mean Corpuscular Hemo Concen 33 g/dL 32-36 RDW 12 % 10.5-15 Platelets 221 CUMM 150-450 Mean Platelet Volume 8.0 um3 7.4-10.4 Granulocytes 50.2 % 38-83 Lymphocytes 36.3 % 20-45 Monocytes 11.8 % High 1-9 Eosinophil 1.2 % 0-6 Basophil% 0.5 % 0-2 Abs Lymphs 2.6 1.0-4.8 Abs Mononuclear 0.8 0-0.8 Abs Grans 3.7 1.5-7.7 Abs Eosinophils 0.1 0-0.6 Abs Basophils 0 0-0.2 1 FASTING 2 RESULTS VERIFIED BY REPEAT ANALYSIS 3 FASTING 4 consistent w/ previous results 5 consistent w/ previous results 6 FASTING 7 consistent w/ previous results 8 consistent w/ previous results 9 FASTING 10 consistent w/ previous results 11 RESULTS VERIFIED BY REPEAT ANALYSIS 12 consistent w/ previous results 13 result dash'd 14 FASTING; 2SST 15 Negative <0.91 Equivocal 0.91 - 1.09 Positive >1.09 Note: The CDC currently advises that Western blot testing be performed following all equivocal or positive EIA results. Final diagnosis should include appropriate clinical findings and a positive EIA which is also positive by Western blot. 16 Negative <0.91 Equivocal 0.91 - 1.09 Positive >1.09 . Note: IgM levels may peak at 3-6 weeks post infection, then gradually decline. FDA currently advises that Western Blot testing be performed following all equivocal or positive EIA results. Final diagnosis should include appropriate clinical findings and a positive EIA which is also positive by Western Blot. 17 RESULT DASH'D 18 RESULT RECKLD 19 FASTING 20 FASTING 21 < or=0.80 Negative 0.81 - 1.20 Equivocal >1.20 Positive 22 result dash'd 23 RESULT DASH'D 24 Anion gap measurement may be of limited value in the presence of any alkalosis, especially in a combined acid base disorder. . 25 New Reference Range and Interpretation effective 04/13/02 TnI (ng/ml) INTERPRETATION <0.06 ng/ml NOT SUPPORTIVE OF DIAGNOSIS OF [place] 0.06 - 0.50 ng/ml INDETERMINATE: SUGGEST SERIAL STUDIES IF CLINICALLY INDICATED. > 0.5 ng/ml CONSISTENT WITH DIAGNOSIS OF [place] . Procedures Date Code Description Status 04/15/2016 10049486 Colonoscopy Completed 03/03/2015 28220 Vision Test- screening test of visual acuity, Completed quantitative, bila 03/03/2015 90547 Electrocardiogram Complete Completed 10/06/2012 95557 Vision Test- screening test of visual acuity, Completed quantitative, bila 01/19/2000 49213 Injection Subcutaneous Or Intramuscular Completed 05/30/1997 65295 Remove Foreign Body Subcutaneous Simple Completed Encounters Type Date Location Provider Dx Diagnosis Office Visit 07/13/2018 Main Office Brock Jacobs, J09.x9 Flu due to ident 2:00p M.D. novel influenza A virus w oth manifest Office Visit 12/20/2017 Main Office Brock Jacobs, M25.512 Pain in left 7:20p M.D. shoulder I25.10 Athscl heart disease of [place] coronary artery w/o ang pctrs M15.0 Primary generalized (osteo)arthritis E78.4 Other hyperlipidemia Z85.46 Personal history of malignant neoplasm of prostate Z12.11 Encounter for screening for malignant neoplasm of colon Z01.818 Encounter for other preprocedural examination Office Visit 08/13/2016 3:30p [facility] Office Jeanette Hsu, L23.5 Allergic contact M.D. dermatitis due to other chemical products K12.0 Recurrent oral aphthae Office Visit 06/05/2016 10:00a Main Office Brock Jacobs, C61 Malignant neoplasm M.D. of prostate I25.10 Athscl heart disease of [place] coronary artery w/o ang pctrs M54.5 Low back pain E78.4 Other hyperlipidemia Office Visit 03/03/2015 [facility] Brock Hugo 414.00 Coronary 2:00p Office Deedee Jacobs Atherosclerosis Unspec Type Vessel [place]/Graft 185 Malignant Neoplasm Prostate 716.99 Arthropathy Unspec Multiple Sites 272.4 Hyperlipidemia Other Unspec 327.23 Obstructive Sleep Apnea Adult Pediatric V70.0 Examination General Medical Routine AT Health Care Facility V72.0 Examination Eyes & Vision Office Visit 10/06/2012 3:40p [facility] Office Brock Jacobs, 185 Malignant M.D. Neoplasm Prostate 414.00 Coronary Atherosclerosis Unspec Type Vessel [place]/Graft 272.4 Hyperlipidemia Other Unspec 724.2 Lumbago 716.99 Arthropathy Unspec Multiple Sites V70.0 Examination General Medical Routine AT Health Care Facility Office Visit 02/04/2012 [facility] Brock Hugo 414.00 Coronary 8:00a Office Deedee Jacobs Atherosclerosis Unspec Type Vessel [place] Band/Graft 780.79 Malaise And Fatigue Other 185 Malignant Neoplasm Prostate V76.41 Screening Malignant Neoplasm Rectum Office Visit 05/14/2010 1:00p Main Office Brock Jacobs, 780.79 Malaise And M.D. Fatigue Other 709.9 Skin & Subcutaneous Tissue Disorders Unspec V76.41 Screening Malignant Neoplasm Rectum 414.00 Coronary Atherosclerosis Unspec Type Vessel [place] Band/Graft 185 Malignant Neoplasm Prostate Office Visit 06/30/2009 4:00p [facility] Office Brock Jacobs M.D. 724.2 Lumbago 414.00 Coronary Atherosclerosis Unspec Type Vessel [place]/Graft 608.89 Male Genital Organ Disorder Other V10.46 History Personal Malignant Neoplasm Prostate 272.4 Hyperlipidemia Other Unspec Office Visit 03/07/2009 [facility] Brock Hugo 414.00 Coronary 8:40a Office Deedee Jacobs Atherosclerosis Unspec Type Vessel [place]/Graft 724.5 Backache Unspec 724.2 Lumbago 716.99 Arthropathy Unspec Multiple Sites 608.89 Male Genital Organ Disorder Other V76.41 Screening Malignant Neoplasm Rectum V10.46 History Personal Malignant Neoplasm Prostate V76.44 Screening For Malig Mukesh Prostate Office Visit 07/01/2008 [facility] Brock Hugo 272.4 Hyperlipidemia Other 9:20a Office Deedee Jacobs Unspec 414.00 Coronary Atherosclerosis Unspec Type Vessel [place]/Graft V10.46 History Personal Malignant Neoplasm Prostate Office Visit 01/08/2008 [facility] Brock Hugo 414.00 Coronary 1:00p Office Deedee Jacobs Atherosclerosis Unspec Type Vessel [place] Band/Graft V10.46 History Personal Malignant Neoplasm Prostate 530.81 Esophageal Reflux 272.4 Hyperlipidemia Other Unspec Office Visit 10/03/2007 2:40p Main Office Brock Hugo 414.00 Coronary Deedee Jacobs Atherosclerosis Unspec Type Vessel [place]/Graft V10.46 History Personal Malignant Neoplasm Prostate 272.4 Hyperlipidemia Other Unspec 530.81 Esophageal Reflux Office Visit 08/03/2007 2:10p Main Office Brock Jacobs, 785.6 Lymph Nodes M.D. Enlargement 414.00 Coronary Atherosclerosis Unspec Type Vessel [place] Band/Graft 698.0 Pruritus Ani Office Visit 05/30/2007 11:20a Main Office Brooks Rios, 726.10 Bursae & Tendon M.D. Disorders Shoulder Region Unspec Office Visit 02/07/2007 5:40p Main Office Brock Jacobs, V10.46 History Personal M.Suman Malignant Neoplasm Prostate 414.00 Coronary Atherosclerosis Unspec Type Vessel [place] Band/Graft 782.1 Rash & Other Nonspec Skin Eruption V76.41 Screening Malignant Neoplasm Rectum Office Visit 05/16/2006 3:30p [facility] Office Brokos Chou 553.1 Hernia Umbilical Deedee Rios Office Visit 12/09/2005 3:15p Main Office Brock Hugo V10.46 History Personal Deedee Jacobs Malignant Neoplasm Prostate 569.3 Hemorrhage Rectum & Anus 724.2 Lumbago 414.00 Coronary Atherosclerosis Unspec Type Vessel [place] Band/Graft Office Visit 07/19/2005 6:10p Main Office Devin Gore M.D. 724.3 Sciatica 726.5 Enthesopathy Of Hip Region Office Visit 06/04/2005 10:10a Main Office Brooks Rios, 719.45 Pain Joint Pelvic M.D. Region & Thigh Office Visit 10/06/2004 3:15p Main Office Brock Jacobs, 780.79 Malaise And M.D. Fatigue Other 272.4 Hyperlipidemia Other Unspec Office Visit 08/06/2004 9:30a Main Office Brock Jacobs, V70.0 Examination General M.D. Medical Routine AT Health Care Facility V77.91 Screening For Lipoid Disorders V77.1 Screening Diabetes Mellitus V18.0 History Family Diabetes Mellitus V77.0 Screening Thyroid Disorders Plan of Treatment 11/10/2018 - Brock Jacobs M.D.M25.561 Pain in right kneeNew Labs: Urinalysis W/RFL To Micro, Ordered: 11/10/18Urine Culture ([facility]), Ordered: Comments:Patient will be seeing Dr. Jolley for preoperative evaluation next week. I feel that he is medically stable and is cleared for the planned right knee replacement surgery by Dr. ValleI25.10 Atherosclerotic heart disease of [place] coronary artery without angina pectorisComments:continue present medication,to continue followup with Dr. Hernandez78.5 Hyperlipidemia, unspecifiedNew Labs:Lipid Panel-[facility], Ordered: 11/10/18Comp Metabolic-[facility], Ordered: 11/10/18TSH ([facility]), Ordered: 09/26Creatine Kin, Total (F/C/CTX), Ordered: 11/10/18CBC Electronic-[facility], Ordered: 11/10/18Comments:continue present medication,recheck of lipids ,liver function [id number] Personal history of malignant neoplasm of prostateNew Labs:PSA ([facility]), Ordered: 11/10/18Comments:doing well , repeat psaM15.0 Primary generalized (osteo)arthritisComments:Patient admits to frustration over multiple surgeries, cymbalta [id number] Low back painComments :failed back surgeryFollow up:Followup:. (Follow up)AllComments:Medication Management Patient Understands medications he's taking? Yes No Are there Barriersto Adherence? Yes No Has the patient been asked about herbal supplements and therapies, and OTC meds? Yes No
[2018-12-05] MEDS ORDERED: celeCOXIB CAP* 200 MG ONE (10:25)
[2018-12-05] MEDS ORDERED: Gabapentin CAP(*) 300 MG ONE ×2 (10:25→10:28)
[2018-12-05] MEDS ORDERED: Buffered Lidocaine 1% SYRIN* 1 ML/SYRINGE INTRADERM ONE (10:25)
[2018-12-05] MEDS ORDERED: Dexamethasone IV* 4 MG/ML 1 ML (4 MG) ONE (10:25)
[2018-12-05] MEDS ORDERED: ceFAZolin 2 GM PREMIX in ORs 2 GM/50 ML BAG IVPB ONE (10:25)
[2018-12-05] MEDS ORDERED: Famotidine IV* 10 MG/ML 2 ML (20 mg) ONE (10:26)
[2018-12-05] MEDS ORDERED: Acetaminophen IV 1GM/100ML * 100 ML ONE (10:28)
[2018-12-05] MEDS: Buffered Lidocaine 1% SYRIN* 1 ML/SYRINGE INTRADERM ONE (10:58)
[2018-12-05] MEDS ORDERED: Propofol* 10 MG/ML 20 ML BTL ONE (11:58)
[2018-12-05] MEDS ORDERED: KETAMINE HCL* 50 MG/ML 10 ML VIAL ONE (11:58)
[2018-12-05] MEDS ORDERED: Midazolam* 1 MG/ML 5 ML VIAL (5 MG) ONE (11:58)
[2018-12-05] MEDS ORDERED: Ondansetron INJ* 2 MG/ML VIAL ONE (11:58)
[2018-12-05] MEDS ORDERED: fentaNYL* 50 MCG/ML 2 ML VIAL (100 MCG VIAL) ONE (11:58)
[2018-12-05] MEDS ORDERED: Bupivacaine 0.5% SDV PF* 30ML VIAL ONE (12:30)
[2018-12-05] MEDS ORDERED: ROPIVACAINE 5 MG/ML 30 ML BTL (0.5%) ONE ×2 (12:42→13:23)
[2018-12-05] MEDS ORDERED: fentaNYL* 50 MCG/ML 2 ML VIAL (100 MCG VIAL) IV PRN (14:17)
[2018-12-05] MEDS ORDERED: HYDROmorphone INJ1* 1 MG/ML SYRINGE IV PRN (14:17)
[2018-12-05] MEDS ORDERED: Naloxone* 0.4 MG/ML 1 ML VIAL IV PRN (14:17)
[2018-12-05] MEDS ORDERED: Ondansetron INJ* 2 MG/ML VIAL IV PRN ×2 (14:17→16:10)
[2018-12-05] MEDS ORDERED: DiMENhydriNATE IV* 50 MG/ML VIAL IV PUSH PRN (14:17)
[2018-12-05] MEDS ORDERED: Midazolam* 1 MG/ML 2 ML VIAL (2 MG) ONE (15:15)
[2018-12-05] MEDS ORDERED: Magnesium Hydroxide LIQ* 30 ML UDC PO PRN (16:10)
[2018-12-05] MEDS ORDERED: Ondansetron TAB* 4 MG PO PRN (16:10)
[2018-12-05] MEDS ORDERED: Polyethylene Glycol 3350* 17 GM PACKET PO PRN (16:10)
[2018-12-05] MEDS ORDERED: Bisacodyl SUPP* 10 MG SUPP PR PRN (16:10)
[2018-12-05] MEDS ORDERED: oxyCODONE/Acetamin 5/325 MG* TAB PO PRN (16:10)
[2018-12-05] MEDS ORDERED: Morphine INJ* 2 MG/ML 1 ML SYRINGE (TWO MG - NEW SYRINGE VERSION) IV PRN (16:10)
[2018-12-05] MEDS ORDERED: diPHENhydraMINE IV* 50 MG/ML 1 ml VIAL (BENADRYL) IV PRN (16:10)
--- NOTE | 2018-12-05 17:23 | OP ---
Operative Report - Blank - Operative Report Date of Operation: 12/05/18 Note: HERLINDA GONZALEZ SR 1955 Date of Surgery: 12/05/18 Nathaly Valle MD Industrial Accountant: Lisa WELLINGTON did help throughout the procedure with preparation of the knee, wound retraction, manipulation of the knee, and wound closure. Anesthesiologist: Sergio Patricia MD Anesthesia Type: Spinal Preoperative Diagnosis: Right severe degenerative osteoarthritis of the knee Postoperative Diagnosis: As above Procedure Performed: Right Total Knee Arthroplasty Tourniquet time: 51 minutes Complications: None Specimen: Bone and cartilage from the right knee joint sent to pathology. Hardware Used: Cemented Villareal and Nephew total knee hardware was used - For the femur a size 7 right oxinium legion posterior stabilized femoral component, for the tibia a size 6 right janice II tibial baseplate, for the insert a size 9mm 5-6 posterior stabilized articular polyethylene insert, and for the patella a size 32 3-peg all poly patella. Brief History/Indication: HERLINDA GONZALEZ SR was known in clinic and had a history of severe right knee pain and swelling. He failed conservative treatment with anti-inflammatories, pain pills, intra-articular injections and physical therapy. He elected to undergo right total knee arthroplasty due to continued pain and decreased quality of life. Radiographs showed severe end stage osteoarthritis of the knee with bone on bone contact. Informed consent was obtained from the patient. He understood the risks of surgery included but were not limited to: bleeding, infection, damage to nearby structures, intraoperative fracture, nerve palsy, failure of the hardware, early loosening, knee stiffness or loss of motion, anesthesia complications, stroke, heart attack , blood clot and . He wished to proceed. Intra-Operative Findings: Intraoperatively the patient was noted to have severe loss of cartilage in all 3 compartments of the knee. Description of the Procedure: HERLINDA GONZALEZ SR was identified in the preanesthesia unit. His right knee was marked as the correct operative side. Informed consent was signed and placed in the chart. The patient was taken to the operating room and placed under anesthesia without complication. A martin catheter was placed. A tourniquet was placed on the right thigh. The right lower extremity was prepped and draped in the usual sterile fashion. Preoperative time-out was made to correctly identify the patient, side and site. Appropriate intraoperative antibiotics were given within one hour of incision. Tourniquet was inflated. A midline incision was made and carried sharply down to the extensor mechanism. A new 10 blade was used to make a standard medial parapatellar arthrotomy. The patella was subluxed laterally. Electrocautery was used to dissect soft tissue off the superomedial tibia to the midsagittal plane. The knee was flexed up. The anterior horn of the lateral meniscus and the ACL were sharply incised. A drill was used to enter the distal femur. The intramedullary distal femoral cutting guide was pinned on the distal femur. The oscillating saw was used to make the distal femoral cut. The external rotation guide was pinned on the distal femur and the distal femur was sized to a size 7. The size 7 multi-cutting jig was pinned on the distal femur. The oscillating saw was used to make the appropriate 4 chamfer cuts. Next the PCL was completely released. The extramedullary tibial cutting guide was pinned on the proximal tibia and the oscillating saw was used to make the proximal tibial cut perpendicular to the mechanical axis of the tibia. The bone was carefully removed. The knee was brought out into full extension. The spacer block was placed and had excellent fit with the knee in full extension. The medial and lateral ligaments were well balanced. The flexion and extension gaps were well balanced. The knee was flexed up. Lamina electronics tech was placed both medially and laterally. Any remaining meniscus was removed with electrocautery. Curved osteotome was used to remove any posterior osteophytes. The tibial tray and drop ras were placed and confirmed a satisfactory tibial cut. The size 7 right femoral trial was impacted onto the distal femur. This trial had excellent fit and stability. The box for the posterior stabilized implant was prepared using a box cut osteotome and a reamer. Next a tibial tray trial and 9 mm insert trial was placed. The knee was taken through a range of motion and had full extension to 130 degrees of flexion. Patellofemoral tracking was satisfactory. The patella was inverted and sized to a size 32. Three peg holes were drilled through the size 32 drill guide. The trial patella was placed and the knee was taken through a range of motion. There was satisfactory patellofemoral tracking. All trials were removed. The tibia was subluxed anteriorly and sized to a size 6. The proximal tibial was prepared with a size 6 keel punch. All bony cut surfaces were irrigated with sterile saline and dried. Final implants were cemented into place starting with the tibia, followed by the femur, and last the patella. A 9 mm insert trial was placed and the knee was brought into full extension. Tourniquet was turned down and the knee was copiously irrigated with sterile saline. Electrocautery was used to obtain meticulous hemostasis. Once the cement had fully cured, the insert trial was removed. Any excess cement was removed from around the hardware and capsule. Final insert chosen was a 9 mm posterior stabilized Janice II articular insert size 5-6. Stability of the insert was checked and noted to be stable. The extensor mechanism was closed using number 1 vicryls. The rest of the incision was closed in a layered fashion using 0 and 2-0 vicryls. The skin was closed using 3-0 nylon suture. Sterile xeroform, 4x4s and webril were used to cover the incision. John wrap and cold pack were used to cover the dressings. The patients anesthesia was reversed without difficulty. He was taken to the PACU in stable condition. Intended weight-bearing will be as tolerated.
[2018-12-05] MEDS ORDERED: oxyCODONE/Acetamin 5/325 MG* TAB ONE (19:21)
[2018-12-05] MEDS: oxyCODONE/Acetamin 5/325 MG* TAB PO PRN (19:21)
[2018-12-05] MEDS: Lactated Ringers 1000 ML Bag* 1,000 ML IV SCH (19:41)
[2018-12-05] MEDS ORDERED: Cyclobenzaprine TAB* 10 MG ONE (19:48)
[2018-12-05] MEDS: Cyclobenzaprine TAB* 10 MG PO PRN (19:50)
--- NOTE | 2018-12-05 20:40 | CONS ---
CC: Dr. Nathaly Valle; Dr. Aziza Rojo* CONSULTATION REPORT: DATE OF CONSULT: 12/05/18 REASON FOR CONSULTATION: Co-management of comorbid medical conditions. CONSULTING PROVIDER: Dr. Nathaly Valle. MY ATTENDING WHILE IN THE HOSPITAL: Dr. Aziza Rojo. HISTORY OF PRESENT ILLNESS: Mr. Santa is a 63-year-old male with past medical history significant for history of NM; status post stenting, high cholesterol, sleep apnea, and chronic pain who is currently status post right total knee arthroplasty. The patient is regaining the feeling and movement in his lower extremities from his spinal anesthesia. He has no pain at this time. The patient denies chest pain, shortness of breath, fevers, chills, cough, nausea, vomiting, dizziness, changes in vision, or other numbness or tingling. The patient preoperatively had some dyspnea on exertion, but attributes this to deconditioning. Denied orthopnea or lower extremity swelling. The patient denied dysuria, recent sick contacts, or any change in his meds. The patient has not taken any NSAIDs for greater than 7 days. The patient did not take any medications for his blood pressure. The patient took all of his other regularly scheduled medications this morning. The patient during his preoperative stress test had no chest pain, no other concerns. PAST MEDICAL HISTORY: Hypertension; unknown medication, high cholesterol, history of prostate cancer; status post resection, coronary artery disease; status post NM and stenting in 2005, depression and anxiety, spinal stenosis; status post lumbar fusion, sleep apnea, on CPAP with which he is compliant. PAST SURGICAL HISTORY: Prostatectomy, stent placement, lumbar fusion, left rotator cuff repair, right knee scope, umbilical hernia repair, septoplasty. MEDICATIONS: 1. Aspirin 81 mg, last taken 1 week ago. 2. Multivitamin, last taken 1 week ago. 3. Ibuprofen, last taken 1 week ago. 4. Tylenol 650 mg p.o. q.4 hours as needed. 5. Crestor 10 mg p.o. every other day. 6. Zetia 10 mg p.o. daily. 7. Tramadol 1 tab p.o. at bedtime. ALLERGIES: The patient has joint pain with ALEVE. FAMILY HISTORY: Both the patient's parents of coronary artery disease and had diabetes. The patient has 5 siblings who are healthy to his knowledge. SOCIAL HISTORY: The patient is a lifelong nonsmoker. The patient does not use alcohol or illicit drugs. 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 The patient's surrogate decision maker will be his . REVIEW OF SYSTEMS: A 14-point review of systems was reviewed and it was negative, except as mentioned above in the HPI. PHYSICAL EXAM: General: The patient is a 63-year-old male who appears stated age and is sitting comfortably in bed, in no acute distress. Vital Signs: At the time of evaluation, temperature 97.5, pulse rate 54, respiratory rate 20, oxygen saturation 96% on 2 L, blood pressure 127/76. HEENT: Head normocephalic , atraumatic. Sclerae anicteric. No conjunctival injection. Nasal mucosa moist. Oral mucosa moist. No pharyngeal erythema, discharge, or exudate. Neck : Supple, nontender. No lymphadenopathy. No carotid bruits auscultated. No JVD. Cardiac: Tachycardic, regular rhythm. No clicks, murmurs, gallops, or rubs. Pulses 2+ in the dorsalis pedis, posterior tibialis and radial areas. Respiratory: Clear to auscultation bilaterally. No wheezes, rales, or rhonchi. Good air exchange bilaterally. Abdomen: Soft, nontender, nondistended. Bowel sounds present and normoactive in all 4 quadrants. No hepatosplenomegaly. No abdominal bruits auscultated. No hepatojugular reflux. Genitourinary: No suprapubic or CVA tenderness. Hyde maintained in place, draining clear yellow urine. Neuro: Cranial nerves II through XII intact. Upper extremity strength 5/5 bilaterally. Minimal movement at the bilateral lower extremities. No sensation at this time. Psychiatric: Very pleasant and cooperative. LABORATORY DATA: Preoperative laboratory data not available. ASSESSMENT AND PLAN: Impression: Mr. Santa is a 63-year-old male with past medical history significant for previous myocardial infarction, hypertension, high cholesterol, prostate cancer, and sleep apnea who is status post right total knee arthroplasty and is doing well postoperatively. 1. Postoperative state. Management per orthopedics. The patient had minimal blood loss and spinal anesthesia, which should wear off. The patient can then have pain control, PT, OT, bowel regimen. He should have his Hyde catheter removed as soon as possible. The patient should have H and H trended. The patient will have DVT prophylaxis with Eliquis per orthopedics. 2. Coronary artery disease, status post myocardial infarction. The patient had a preoperative stress test, which was read as low risk with normal ejection fraction. The patient had no signs of congestive heart failure. The patient appears to be euvolemic. The patient is not having chest pain. No further workup is indicated at this time. Continue the patient's aspirin in 2 days as well as his Crestor and Zetia. 3. Sleep apnea. Continue the patient's CPAP. 4. History of prostate cancer. Monitor closely for urinary retention. 5. Chronic pain. Continue the patient's Cymbalta and opiates postoperatively for pain. 6. DVT prophylaxis. Eliquis per ortho as above. 7. FEN. The patient will have a healthy diet and have fluids until he is able to tolerate oral intake. PARTICIPATION: Per Orthopedics. TIME SPENT: Approximately 45 minutes were spent on this consultation, 20 of which were spent [id number] with the patient, obtaining history and physical, and discussing the treatment plan. Plan has been discussed with my attending, Dr. Aziza Rojo, and she is in agreement. AMISH ABBASI [id number]/CRISELDA #: [id number] MTDAbdirahman
[2018-12-05] MEDS: Docusate CAP* 100 MG PO SCH (22:13)
[2018-12-05] MEDS: DULoxetine DR CAP* 30 MG CAP.DR PO SCH (22:13)
[2018-12-05] MEDS: oxyCODONE TAB* 5 MG TAB PO PRN (22:13)
[2018-12-05] MEDS: ceFAZolin 1 GM ADVAN(*) 1 GM in NS 0.9% 50 ML* 50 ML IVPB SCH (22:15)
[2018-12-05] MEDS: Magnesium Hydroxide LIQ* 30 ML UDC PO SCH (22:15)
[2018-12-05] MEDS: Acetaminophen TAB* 325 MG PO SCH (22:17)
[2018-12-05] MEDS: traMADol TAB* 50 MG PO PRN (23:51)
[2018-12-06] MEDS: oxyCODONE/Acetamin 5/325 MG* TAB PO PRN ×5 (03:19→21:08)
[2018-12-06] MEDS: Buffered Lidocaine 1% SYRIN* 1 ML/SYRINGE INTRADERM ONE (04:00)
[2018-12-06] MEDS: Acetaminophen TAB* 325 MG PO SCH ×3 (05:18→22:26)
[2018-12-06] MEDS: oxyCODONE TAB* 5 MG TAB PO PRN ×5 (05:19→23:08)
[2018-12-06] MEDS: Lactated Ringers 1000 ML Bag* 1,000 ML IV SCH (05:19)
[2018-12-06] MEDS: ceFAZolin 1 GM ADVAN(*) 1 GM in NS 0.9% 50 ML* 50 ML IVPB SCH ×2 (05:19→13:47)
[2018-12-06 05:42] LABS: Hematocrit 38 % (42-52); Hemoglobin 12.9 g/dL (14.0-18.0); Mean Platelet Volume 7.6 fL (7.4-10.4); Platelet Count 186 10^3/uL (150-450)
[2018-12-06 05:57] LABS: Calcium 9.2 mg/dL (8.6-10.3); EGFR African American 133.4 (>60); EGFR Non-African American 110.3 (>60); Potassium 4.4 mmol/L (3.5-5.0)
[2018-12-06] MEDS: Docusate CAP* 100 MG PO SCH ×2 (08:58→21:10)
[2018-12-06] MEDS: Magnesium Hydroxide LIQ* 30 ML UDC PO SCH ×2 (08:58→21:11)
[2018-12-06] MEDS: Aspirin EC TAB* 81 MG TAB.EC PO SCH (08:58)
[2018-12-06] MEDS: Apixaban* 2.5 MG TAB PO SCH ×2 (08:58→21:10)
[2018-12-06] MEDS: Ezetimibe TAB* 10 MG PO SCH (08:58)
--- NOTE | 2018-12-06 11:35 | PN ---
Progress Note - Progress Note Date of Service: 12/06/18 SOAP: Subjective: []Patient was seen and examined OOB in chair. His pain is well controlled. Denies CP, SOB, dizziness, nausea. Objective: []General: Appears well, NAD RLE: Right knee dressing CDI, thigh soft, DF/PF intact, sensation intact to light touch distally, DP2+ Calves supple and nontender without erythema, edema or palpable cords Assessment: []POD 1 sp right total knee arthroplasty Plan: []WBAT PT/OT eliquis 2.5 mg po BID x 1 month post op Resume aspirin 81 mg, atorvastatin and zetia Anticipate DC home tomorrow with VNS Vital Signs Temp 98 F 12/06/18 11:31 Pulse 54 12/06/18 11:31 Resp 16 12/06/18 11:31 BP 111/47 12/06/18 11:31 Pulse Ox 97 12/06/18 11:31 Intake & Output 12/05/18 12/06/18 12/06/18 18:59 06:59 18:59 Intake Total 1700 1917 838 Output Total 1000 3550 Balance 700 -1633 838 Weight 223 lb 12.8 oz Intake: IV Fluids 1700 987 LR 1700 987 IVPB 50 Cefazolin 50 Oral 880 838 Output: Hyde 1000 3550 Other: # Bowel Movements 0 Estimated Blood Loss 200 Comment Laboratory Last Values Hgb 12.9 g/dL (14.0-18.0) L 12/06/18 05:03 Hct 38 % (42-52) L 12/06/18 05:03 Plt Count 186 10^3/uL (150-450) 12/06/18 05:03 MPV 7.6 fL (7.4-10.4) 12/06/18 05:03 Sodium 140 mmol/L (135-145) 12/06/18 05:03 Potassium 4.4 mmol/L (3.5-5.0) 12/06/18 05:03 Chloride 104 mmol/L (101-111) 12/06/18 05:03 Carbon Dioxide 29 mmol/L (22-32) 12/06/18 05:03 Anion Gap 7 mmol/L (2-11) 12/06/18 05:03 BUN 18 mg/dL (6-24) 12/06/18 05:03 Creatinine 0.72 mg/dL (0.67-1.17) 12/06/18 05:03 Est GFR ( Amer) 133.4 (>60) 12/06/18 05:03 Est GFR (Non-Af Amer) 110.3 (>60) 12/06/18 05:03 BUN/Creatinine Ratio 25.0 (8-20) H 12/06/18 05:03 Glucose 132 mg/dL (70-100) H 12/06/18 05:03 Calcium 9.2 mg/dL (8.6-10.3) 12/06/18 05:03
[2018-12-06] MEDS: Cyclobenzaprine TAB* 10 MG PO PRN ×2 (16:48→23:10)
--- NOTE | 2018-12-06 19:01 | PN ---
Hospitalist Progress Note Date of Service: 12/06/18 Medicine Consult from 12/05/18 noted. Patient VS and labs noted, chart reviewed. No Acute changes noted. Patient appears to be in stable post-operative state. Will continue to follow distantly.
[2018-12-06] MEDS: DULoxetine DR CAP* 30 MG CAP.DR PO SCH (21:10)
[2018-12-06] MEDS: traMADol TAB* 50 MG PO PRN (23:10)
[2018-12-07] MEDS: oxyCODONE/Acetamin 5/325 MG* TAB PO PRN ×3 (02:29→11:44)
[2018-12-07] MEDS: oxyCODONE TAB* 5 MG TAB PO PRN (05:49)
[2018-12-07 06:21] LABS: Hematocrit 38 % (42-52); Hemoglobin 12.9 g/dL (14.0-18.0); Platelet Count 194 10^3/uL (150-450)
[2018-12-07] MEDS: Acetaminophen TAB* 325 MG PO SCH ×2 (06:28→12:07)
[2018-12-07] MEDS: Cyclobenzaprine TAB* 10 MG PO PRN (07:35)
[2018-12-07] MEDS: Aspirin EC TAB* 81 MG TAB.EC PO SCH (08:18)
[2018-12-07] MEDS: Ezetimibe TAB* 10 MG PO SCH (08:18)
[2018-12-07] MEDS: Docusate CAP* 100 MG PO SCH (08:18)
[2018-12-07] MEDS: Magnesium Hydroxide LIQ* 30 ML UDC PO SCH (08:18)
[2018-12-07] MEDS: Apixaban* 2.5 MG TAB PO SCH (08:18)
[2018-12-07] MEDS ORDERED: Atorvastatin* 20 MG TAB PO SCH (09:00)
--- NOTE | 2018-12-07 10:48 | PN ---
Progress Note - Progress Note Date of Service: 12/07/18 SOAP: Subjective: [] Patient seen at bedside. He feels well without CP, SOB, dizziness, nausea, confusion. Objective: []General: Appears well, NAD, appropriate conversation RLE: Right knee dressing changed, incision CDI, thigh soft, DF/PF intact, sensation intact to light touch distally, DP2+ Calves supple and nontender without erythema, edema or palpable cords Assessment: []POD 2 sp right total knee arthroplasty Plan: []WBAT PT/OT eliquis 2.5 mg po BID x 1 month post op DC home today Decrease pain medication to q4 hr Use incentive spirometer Vital Signs Temp 98.7 F 12/07/18 07:36 Pulse 59 12/07/18 07:36 Resp 18 12/07/18 10:28 BP 133/66 12/07/18 07:36 Pulse Ox 92 12/07/18 08:00 Intake & Output 12/06/18 12/07/18 12/07/18 18:59 06:59 18:59 Intake Total 1438 1230 Output Total 1675 1450 Balance -237 -220 Intake: Oral 1438 1230 Output: Urine 1675 1450 Other: # Bowel Movements 0 Laboratory Last Values Hgb 12.9 g/dL (14.0-18.0) L 12/07/18 05:43 Hct 38 % (42-52) L 12/07/18 05:43 Plt Count 194 10^3/uL (150-450) 12/07/18 05:43 MPV 8.0 fL (7.4-10.4) 12/07/18 05:43 Sodium 140 mmol/L (135-145) 12/06/18 05:03 Potassium 4.4 mmol/L (3.5-5.0) 12/06/18 05:03 Chloride 104 mmol/L (101-111) 12/06/18 05:03 Carbon Dioxide 29 mmol/L (22-32) 12/06/18 05:03 Anion Gap 7 mmol/L (2-11) 12/06/18 05:03 BUN 18 mg/dL (6-24) 12/06/18 05:03 Creatinine 0.72 mg/dL (0.67-1.17) 12/06/18 05:03 Est GFR ( Amer) 133.4 (>60) 12/06/18 05:03 Est GFR (Non-Af Amer) 110.3 (>60) 12/06/18 05:03 BUN/Creatinine Ratio 25.0 (8-20) H 12/06/18 05:03 Glucose 132 mg/dL (70-100) H 12/06/18 05:03 Calcium 9.2 mg/dL (8.6-10.3) 12/06/18 05:03
--- NOTE | 2018-12-07 11:07 | DS ---
Orthopedic Discharge Summary - Discharge Summary Date of Admission:12/05/18 Date of Discharge: 12/07/18 Date of Surgery: 12/05/18 Attending Orthopedic Provider: Dr Valle Pre-operative Diagnosis: right knee osteoarthritis Operative Procedure: right total knee replacement Disposition of Patient: home Condition of Patient: stable History: HERLINDA GONZALEZ SR is a 63 year old M with years of increasingly severe right knee pain. Patient has failed conservative management and has elected to undergo a right total knee replacement Hospital Course: HERLINDA was admitted to [facility] on 12/05/18. Patient underwent a right total knee replacement without complication followed by a brief recovery in PACU and transfer to the Short Stay Surgical Unit in stable condition. Our hospitalist service, physical therapy and occupational therapy also participated in this patients care. Post-op day 1: patient was alert and in no acute distress. Dressing was clean, dry and intact. Operative extremity dorsiflexion and plantarflexion intact, sensation intact to light touch distally, DP2+. Post-op day two: dressing was changed, incision was clean , dry and intact. Patient was deemed to be medically and orthopedically stable for discharge. Physical therapy goals were met. Home Medications Medication Instructions Recorded Confirmed Type Aspirin [Aspirin EC] 81 mg PO QAM 05/30/13 12/05/18 History Nitroglycerin TAB 0.4 MG* 0.4 mg SL Q5M PRN 04/13/16 12/05/18 History Multivitamin [Multiple Vitamins] 1 tab PO QAM 12/20/17 12/05/[address] CAP* [Cymbalta CAP*] 30 mg PO BEDTIME 10/17/18 12/05/18 History Acetaminophen [Acetaminophen Extra 2 tab PO BID 11/22/18 12/05/18 History Strength] Ezetimibe TAB* [Zetia TAB*] 10 mg PO QAM 11/22/18 12/05/18 History Polyethylene Glycol 3350* 1 dose PO QPM 11/22/18 12/05/18 History [Miralax*] Rosuvastatin Calcium [Crestor] 10 mg PO EVERY OTHER DAY 11/22/18 12/05/18 History Stool Softener 1 tab PO QPM 11/22/18 12/05/18 History Acetaminophen TAB* [Tylenol TAB*] 975 mg PO Q8HR tab 05/30/19 Rx Apixaban* [Eliquis*] 2.5 mg PO BID #60 tab 12/07/18 Rx Docusate CAP* [Colace Cap*] 100 mg PO BID PRN #60 cap 12/07/18 Rx oxyCODONE/Acetamin 5/325 MG* 1 tab PO Q4H PRN tab MDD 10 12/07/18 Rx [Percocet 5/325 TAB*] oxyCODONE/Acetamin 5/325 MG* 2 tab PO Q4H PRN #70 tab MDD 10 12/07/18 Rx [Percocet 5/325 TAB*] Discharge Instructions following Orthopedic Surgery: Activity: * Weight Bearing as tolerated * Continue physical therapy and occupational therapy exercises as shown * home physical therapy Wound care: * OK to shower on post-op day 3, no bathing, swimming, or submerging wound. * Use gentle soap, pat dry. Cover with gauze, CAMACHO wrap or tape. * Visiting home nurse to do wound checks. Call Orthopedic office for: * Increased drainage * Redness * Increased pain * Fever Go to ER with shortness of breath or chest pain. Diet: * Regular diet * Increase fluids and fiber to prevent constipation. * Continue to use stool softeners, call office if no bowel motion within 48 hours. Medications See Home Medication List in your packet for medications that you should take after discharge. DVT Prophylaxis: Eliquis Dosin.5 mg, 1 tab every 12 hours x 30 days. This medication increases bleeding tendency Pain Control: Percocet Dosin/325 mg 1-2 tabs by mouth every 4-6 hours as needed for pain. Maximum of 10 tabs per day. Hold for sedation Please note that Percocet contains Tylenol (acetaminophen). Maximum daily dose of Tylenol is 4000 mg from all sources. Antibiotics are required prior to any dental work. FOLLOW UP: Follow up with [Leonard] Within 10-14 days, call for appointment Please call our office with any questions or concerns ([phone])
[2018-12-07 11:34] VITALS: BP 132/59
== END 2018-12-07 13:10 | disposition home health service (06) | DRG 302 ==
LOC: AA 10:00 → SSU 19:33
PROVIDERS: ADMIT Orthopaedic Surgery Adult Reconstructive Orthopaedic Surgery; ATTEND Orthopaedic Surgery Adult Reconstructive Orthopaedic Surgery
PROC: 0SRC069 Replacement of Right Knee Joint with Oxidized Zirconium on Polyethylene Synthetic Substitute, Cemented, Open Approach (ICD-10-PCS; principal; 2018-12-05 13:00)
DX: M17.0 Bilateral primary osteoarthritis of knee (principal); I10 Essential (primary) hypertension; E78.00 Pure hypercholesterolemia, unspecified; I25.10 Atherosclerotic heart disease of native coronary artery without angina pectoris; F32.9 Major depressive disorder, single episode, unspecified; F41.9 Anxiety disorder, unspecified; M25.461 Effusion, right knee; M25.761 Osteophyte, right knee; E78.2 Mixed hyperlipidemia; G47.33 Obstructive sleep apnea (adult) (pediatric); G89.29 Other chronic pain; E66.9 Obesity, unspecified; Z95.5 Presence of coronary angioplasty implant and graft; I25.2 Old myocardial infarction; Z90.79 Acquired absence of other genital organ(s); Z88.8 Allergy status to other drugs, medicaments and biological substances; Z85.46 Personal history of malignant neoplasm of prostate; Z98.1 Arthrodesis status; Z83.3 Family history of diabetes mellitus; Z82.49 Family history of ischemic heart disease and other diseases of the circulatory system; Z68.33 Body mass index [BMI] 33.0-33.9, adult; Z79.82 Long term (current) use of aspirin
CPT/HCPCS: 36415; 80048; 85014; 85018; 85049; A9270-GY; C1776; J0690; J1100; J2250; J2405; J2704; J2795; J3010; J3490